=== PATIENT | female | born 1960 | race Caucasian/White ===

== ENCOUNTER → 2018-08-17 07:28 | Outpatient (CLI) | payer BC, SELFPAY ==
--- NOTE | 2018-08-17 07:35 | BI_ITS ---
MAMMOGRAPHY - BILATERAL SCREENING REASON FOR EXAM: Female, 58 years old. Routine annual screening examination. PERTINENT HISTORY: Aunt with breast cancer. Remote right stereotactic breast biopsy. TECHNIQUE: Digital bilateral breast douglas (3D mammographic acquisition) in the CC and MLO projections. 2-D mediolateral oblique (MLO) and craniocaudad (CC) views of both breasts were obtained. CAD: Full Field Digital Mammography with Computer Added Detection was performed. COMPARISON: Comparison is made with prior study to August 07, 2017 and July 31, 2016. FINDINGS: Breast Composition: The breasts are heterogeneously dense, which may obscure small masses. There are no dominant masses or suspicious calcifications. A Sterotactic tissue clip marker is seen in the deep slightly lateral Portion of the right breast. This is unchanged. No other significant abnormalities are identified. There has been no significant change since the prior study. BI/SCREENING MAMM (CAD), BILAT IMPRESSION: Stable bilateral screening mammogram. Yearly follow-up mammogram recommended. (A) ASSESSMENT CATEGORY: BIRADS Category 2: Benign. A letter regarding these results will be sent to the patient by the facility within 30 days. Approximately 10% of breast cancers are not detected by mammography. A normal mammogram should not delay biopsy of a clinically suspicious abnormality. [id number] Electronically Signed: Raz Berg MD at 9:56 EDT Tel [phone], Service support ,
== END ==
PROVIDERS: Family Provider Family Medicine; PCP Family Medicine; Visit Provider Family Medicine
DX: Z12.31 Encounter for screening mammogram for malignant neoplasm of breast (principal)
CPT/HCPCS: 77063; 77067

== ENCOUNTER → 2018-09-11 09:47 | Outpatient (CLI) | payer BC, SELFPAY ==
[2018-09-11 10:18] LABS: Absolute Lymphocyte Count 2.55 X10^3/ul (0.83-4.51); Absolute Neutrophil Count 5.8 X10^3/uL (2.0-7.7); Basophil# 0.07 X10^3/uL; Basophil% 0.7 % (0-1); Eosinophil# 0.42 X10^3/uL; Eosinophils% 4.3 % (0-5); Hematocrit 46.7 % (37-47); Hemoglobin 15.2 g/dl (12.0-15.0); Lymphocyte # 2.55 X10^3/ul (4.0); Lymphocyte % 25.9 % (19-41); Mean Corp Hgb Conc 32.5 g/gl (32-36); Mean Corpuscular Hgb 30.8 pg (27.0-32.0); Mean Corpuscular Volume 94.5 fL (81-99); Mean Platelet Vol. 11.1 fl (6.2-12.0); Monocyte# 1.01 X10^3/uL; Monocyte% 10.3 % (0-10); Neutrophil # 5.78 X10^3/uL (2.7-7.7); Neutrophil % 58.7 % (47-70); Platelet Count 239 K/mm3 (150-450); RBC Distribution Width CV 12.6 % (11.6-14.6); RBC Distribution Width SD 43.5 fl (35.1-43.9); Red Blood Count 4.94 M/mm3 (4.2-5.4); White Blood Count 9.8 K/mm3 (4.4-11.0)
[2018-09-11 10:21] LABS: POSITIVE COUNT NO; POSITIVE DIFFERENTIAL NO; POSITIVE MORPHOLOGY NO
[2018-09-11 10:38] LABS: AST(SGOT) 42 U/L (15-37); Alanine Aminotransfer ALT/SGPT 53 U/L (13-56)
== END ==
PROVIDERS: Family Provider Family Medicine; PCP Family Medicine; Referring Provider Podiatrist; Visit Provider Podiatrist
DX: B35.1 Tinea unguium (principal)
CPT/HCPCS: 36415; 84450; 84460; 85025

== ENCOUNTER → 2018-09-28 13:50 | Outpatient (CLI) | payer BC, SELFPAY ==
[2018-09-28 16:14] LABS: AST(SGOT) 43 U/L (15-37); Alanine Aminotransfer ALT/SGPT 50 U/L (13-56); Albumin, Serum 3.5 g/dL (3.2-5.0); Alkaline Phosphatase 330 U/L (45-117); Bilirubin, Direct 0.22 mg/dL (0.00-0.30); Globulin 4.6 g/dL (2.2-4.2); Protein, Total 8.1 g/dL (6.4-8.2)
== END ==
PROVIDERS: Family Provider Family Medicine; PCP Family Medicine; Referring Provider Family Medicine; Visit Provider Family Medicine
DX: R74.8 Abnormal levels of other serum enzymes (principal)
CPT/HCPCS: 36415; 80076; 84075; 84080

== ENCOUNTER → 2018-10-05 07:02 | Outpatient (CLI) | payer OTHER, SELFPAY | PROVIDERS: Family Provider Family Medicine; PCP Family Medicine; Referring Provider Family Medicine; Visit Provider Family Medicine | DX: R74.8 Abnormal levels of other serum enzymes (principal) | CPT/HCPCS: 36415 ==

== ENCOUNTER → 2018-11-03 12:21 | Outpatient (CLI) | payer OTHER, SELFPAY ==
--- NOTE | 2018-11-03 14:19 | NEURO ---
NCS and/or EMG Patient Report Ordering Doctor: Jacki Oscar DATE OF SERVICE: 11/03/18 Shay Luo is a 58 year old female who presents for electrodiagnostic testing of the left lower limb. She complains of numbness in the third through fifth toes. Electrodiagnostic findings: Left peroneal motor nerve demonstrates normal distal latency, amplitude and conduction velocity. Normal left tibial motor response. Normal sensory responses. Prolonged left-sided H reflex. Needle EMG testing shows no evidence of acute denervation. Polyphasic motor units are seen in the left gastrocnemius. Electrodiagnostic impression: This is an abnormal study in the left lower limb. 1. Electrodiagnostic findings demonstrate chronic left S1 radiculopathy. 2. No electrodiagnostic evidence for peripheral neuropathy. If there are any further questions, please do not hesitate to contact me
== END ==
PROVIDERS: Family Provider Family Medicine; PCP Family Medicine; Referring Provider Family Medicine; Visit Provider Family Medicine
DX: G57.92 Unspecified mononeuropathy of left lower limb (principal)
CPT/HCPCS: 95886; 95910

== ENCOUNTER → 2018-11-11 08:19 | Outpatient (CLI) | payer OTHER, SELFPAY ==
[2018-11-11 11:00] LABS: Alkaline Phosphatase 307 U/L (45-117)
--- OUTSIDE RECORDS SUMMARY | 2018-12-28 01:19 | XMS RPT_ITS ---
:1960 Author Organization OHIP Support Name Relationship Address Phone SETTLES, JOEL Unavailable [address] + [place] [address] UE Unavailable Unavailable Unavailable SETTLES, JOEL Unavailable [address] + [place] [address] UE Unavailable Unavailable Unavailable SETTLES, JOEL Unavailable [address] + [place] [address] UE Unavailable Unavailable Unavailable SETTLES, JOEL Unavailable [address] + [place] [address] UE Unavailable Unavailable Unavailable SETTLES, JOEL Unavailable [address] + [place] [address] UE Unavailable Unavailable Unavailable SETTLES, JOEL Unavailable [address] + [place] [address] UE Unavailable Unavailable Unavailable SETTLES, JOEL Unavailable [address] + [place] [address] UE Unavailable Unavailable Unavailable [employer] Unavailable [address] + [place] [address] SETTLES, JOEL Unavailable [address] + [place] [address] [employer] Unavailable [address] + [place] [address] SETTLES, JOEL Unavailable [address] + [place] [address] [employer] Unavailable [address] + [place] [address] SETTLES, JOEL Unavailable [address] + [place] [address] Care Team Providers Name Role Phone Jolliff, Jacki Attending Unavailable Jolliff, Jacki Referring Unavailable Jolliff, Jacki Primary Care Unavailable Jolliff, Jacki Attending Unavailable Jolliff, Jacki Referring Unavailable Jolliff, Jacki Primary Care Unavailable Jolliff, Jacki Attending Unavailable Jolliff, Jacki Primary Care Unavailable Alessio, Efren Attending Unavailable Alessio, Efren Referring Unavailable Jolliff, Jacki Primary Care Unavailable Jolliff, Jacki Attending Unavailable Jolliff, Jacki Referring Unavailable Jolliff, Jacki Primary Care Unavailable Jabour, Jesús Attending Unavailable Jabour, Vincmoe Referring Unavailable Jolliff, Jacki Primary Care Unavailable [...] TYPE CONDITION / CODE ATTENDING STATUS SOURCE 11/24/2018 Unknown G62.9 - Jolliff, Jacki Active [facility] unspecified / Hospital G62.9(ICD-10) Repository 10/11/2018 Unknown R74.8 - Abnormal Jolliff, Jacki Active [facility] levels of other Community serum enzymes / Hospital R74.8(ICD-10) Repository 09/11/2018 Unknown B35.1 - Efren Rose Active [facility] unguium / Community B35.1(ICD-10) Hospital Repository PROCEDURES PROCEDURES No Procedure Records FoundRESULTS RESULTS ABDOMEN LIMITED Observed: 12/21/2018 Status: F Source: [place] 7:55 AM [facility] REPOSITORY [facility] Imaging Services [address] [place] [address] Abdomen Limited MR#: [id number] Acct: [id number] Name: SHAY NOLASCO Mckenzie Rep #: [id number] : 1960 F 58 From: Raz Berg MD PCP: Jacki Oscar MD Status: REG CLI Study: Abdomen Limited Date of Exam: 12/21/18 Exam# [id number] Ordering Dr: Jesús Chandler MD STUDY: ABDOMINAL ULTRASOUND - RIGHT UPPER QUADRANT REASON FOR VISIT: Female, 58 years old. Elevated liver enzymes. Hepatic cholestasis. TECHNIQUE: Ultrasound evaluation of the right upper quadrant was performed with real-time and static carrillo-scale imaging. TECHNICAL QUALITY: Adequate. COMPARISON: None. FINDINGS: Liver: The liver measures 16.0 cm. There is normal echogenicity of the liver. The bile ducts are within normal limits. There is hepatic color flow. The direction of portal flow is hepatopetal. There is no demonstrated mass lesion. Gallbladder: Normal distended gallbladder. The gallbladder wall measures 2.6 mm. There is a negative sonographic Wallace's sign. There is no pericholecystic fluid. There are no gallstones. Common Bile Duct (C.B.D.): The common bile duct measures 4.3 mm. Pancreas: Normal size of the head, body and tail of the pancreas. There is normal echogenicity of the pancreas. There is no demonstrated pancreatic mass or cyst. Right Kidney: Normal size of the right kidney. The right kidney measures 11.6 cm x 5 cm x 6.1 cm. Normal renal cortex. The right cortex measures 1.4 cm. There is no demonstrated renal mass or cyst. There is no right hydronephrosis. US/Abdomen Limited IMPRESSION: Normal right upper quadrant ultrasound examination. Electronically Signed: Raz Berg MD at 10:18 EST Tel [phone], Service support , CC: Jacki Oscar MD; Jesús Chandler Manager Of Construction: Signed LIVER PROFILE Collected: 12/14/2018 Status: F Source: [place] 2:31 PM [facility] REPOSITORY TYPE CODE TESTS RESULT OUT OF RANGE REFERENCE UNITS LAB L501.1500 6.4-8.2 g/dL High T PROT 8.3 LAB L501.1800 3.2-5.0 g/dL Normal ALB 3.6 LAB L501.1950 2.2-4.2 g/dL High GLOB 4.7 LAB L501.4100 15-37 U/L Normal AST 28 LAB L501.4305 45-117 U/L High ALK P 316 LAB L501.4405 13-56 U/L Normal ALT 40 LAB L501.4600 0.20-1.00 mg/dL Normal T BILI 0.50 LAB L501.4700 0.00-0.30 mg/dL Normal D BILI 0.21 Performed By: #### L500.3400, L501.5100 #### [facility] [address] [place], [address] GGTP Collected: 12/14/2018 Status: F Source: [place] 2:31 PM [facility] REPOSITORY TYPE CODE TESTS RESULT OUT OF RANGE REFERENCE UNITS LAB L501.5100 5-55 U/L High GGTP 441 Performed By: #### L500.3400, L501.5100 #### [facility] [address] [place], [address] ERYTHROCYTE SED RATE Collected: 12/14/2018 Status: F Source: [place] 2:31 PM [facility] REPOSITORY TYPE CODE TESTS RESULT OUT OF RANGE REFERENCE UNITS LAB L102.0000 0-30 mm/hr Normal SED RATE 14 Performed By: #### L101.9900 #### [facility] [address] [place], [address] ANTI-MITOCHONDRIAL AB Collected: Status: F Source: [place] 12/14/2018 2:31 PM [facility] REPOSITORY TYPE CODE TESTS RESULT OUT OF REFERENCE UNITS RANGE LAB L800.1280 0.0-20.0 Units High MITOCHN AB 98.8 Result Comment: Negative 0.0 - 20.0 Equivocal 20.1 - 24.9 Positive >24.9 Mitochondrial (M2) Antibodies are found in 90-96% of patients with primary biliary cirrhosis. Performed By: #### L800.1280, L3100.5475 #### [facility] (refer to report for specific site) refer to report for address and phone number ANTINUCLEAR ANTIBODIES Collected: 12/14/2018 Status: F Source: [place] DIRECT 2:31 PM [facility] REPOSITORY TYPE CODE TESTS RESULT OUT OF REFERENCE UNITS RANGE LAB L3100.5475 Negative High Positive CHRISTINE-DIRECT Result Comment: Performed at: [facility] [address] [id number] Supervisor Park Workers: Jesús Chu PhD, Phone: [phone] Performed By: #### L800.1280, L3100.5475 #### [facility] (refer to report for specific site) refer to report for address and phone number ANTI-SMOOTH MUSCLE ABS Collected: 12/14/2018 Status: F Source: [place] 2:31 PM [facility] REPOSITORY TYPE CODE TESTS RESULT OUT OF RANGE REFERENCE UNITS LAB L803.2200 0-19 Units Normal ANTISMOOTH 6643 14 Result Comment: Negative 0 - 19 Weak positive 20 - 30 Moderate to strong positive >30 Actin Antibodies are found in 52-85% of patients with autoimmune hepatitis or chronic active hepatitis and in 22% of patients with primary biliary cirrhosis. Performed By: #### L803.2200, L3100.0390, L3100.0625, L3400.0700 #### [facility] (refer to report for specific site) refer to report for address and phone number HEPATITIS B SURFACE Collected: 12/14/2018 Status: F Source: [place] AG 2:31 PM [facility] REPOSITORY TYPE CODE TESTS RESULT OUT OF RANGE REFERENCE UNITS LAB L3100.0400 Negative Normal HB Negative SURF AG Result Comment: Performed at: [facility] [address] [id number] Supervisor Park Workers: Jesús Chu PhD, Phone: [phone] Performed By: #### L803.2200, L3100.0390, L3100.0625, L3400.0700 #### [facility] (refer to report for specific site) refer to report for address and phone number HEPATITIS C ANTIBODIES Collected: 12/14/2018 Status: F Source: [place] 2:31 PM [facility] REPOSITORY TYPE CODE TESTS RESULT OUT OF RANGE REFERENCE UNITS LAB L3100.0650 0.0-0.9 s/co ratio Normal HEP C AB 0.1 Result Comment: Negative: < 0.8 Indeterminate: 0.8 - 0.9 Positive: > 0.9 The CDC recommends that a positive HCV antibody result be followed up with a HCV Nucleic Acid Amplification test (552466). Performed By: #### L803.2200, L3100.0390, L3100.0625, L3400.0700 #### [facility] (refer to report for specific site) refer to report for address and phone number CERULOPLASMIN Collected: 12/14/2018 Status: F Source: [place] 2:31 PM [facility] REPOSITORY TYPE CODE TESTS RESULT OUT OF RANGE REFERENCE UNITS LAB L3400.0700 19.0-39.0 mg/dL Normal CERULOPLAS 1560 31.7 Performed By: #### L803.2200, L3100.0390, L3100.0625, L3400.0700 #### [facility] (refer to report for specific site) refer to report for address and phone number SPINE LUMBAR Observed: 11/22/2018 Status: F Source: [place] (ROUTINE) 3:29 PM [facility] REPOSITORY [facility] Imaging Services [address] [place] [address] Spine Lumbar (Routine) MR#: [id number] Acct: [id number] Name: SHAY NOLASCO Rep #: [id number] : 1960 F 58 From: Sherrill Valdes MD PCP: Jacki Oscar MD Status: REG CLI Study: Spine Lumbar (Routine) Date of Exam: 11/22/18 Exam# [id number] Ordering Dr: Jacki Oscar MD STUDY: MRI LUMBAR SPINE WITHOUT CONTRAST REASON FOR EXAM: Female, 58 years old. Nerve impingement. Low back and left foot leg pain. TECHNIQUE: Standardized fat and water weighted pulse sequences were obtained in the sagittal and axial planes. COMPARISON: None FINDINGS: T12-L1: Normal endplates. Normal disc height, hydration and morphology. Normal bilateral facet joints. Normal central canal and bilateral lateral recesses. Normal bilateral intervertebral neural foramina. There is straightening of the normal lumbar lordosis. There is no substantial scoliosis. Normal conus medullaris that terminates at the L1 level. L1-2: Normal endplates. Normal disc height, hydration and morphology. Normal bilateral facet joints. Normal central canal and bilateral lateral recesses. Normal bilateral intervertebral neural foramina. L2-3: Schmorl's nodes. Endplates are otherwise unremarkable.. Normal disc height, hydration and morphology. Normal bilateral facet joints. Normal central canal and bilateral lateral recesses. Normal bilateral intervertebral neural foramina. L3-4: Schmorl's nodes. Disc dehydration and mild disc space narrowing. Normal bilateral facet joints. Normal central canal and bilateral lateral recesses. Normal bilateral intervertebral neural foramina. L4-5: Normal endplates. Disc dehydration and moderate disc space narrowing. There is mild facet hypertrophy. There is a mild, noncompressive spondylotic bar. Normal central canal and bilateral lateral recesses. There is mild inferior foraminal encroachment. No evidence of neural compromise. L5-S1: Edematous endplate changes. There is marked disc space narrowing. There is a mild, noncompressive spondylotic bar. Mild facet hypertrophy. There is mild foraminal encroachment due to spurring and facet hypertrophy. Normal central canal and bilateral lateral recesses. Normal visualized sacral ala. Normal visualized paraspinous soft tissue structures. MRI/Spine Lumbar (Routine) IMPRESSION: 1. Mild foraminal encroachment at L4-5 and L5-S1. 2. Degenerative changes as noted above. Electronically Signed: Sherrill Valdes MD at 17:56 EST Tel , Service support , CC: Jacki Oscar MD Manager Of Construction: Signed PT D/C SUMMARY (1) Observed: 11/17/2018 Status: F Source: [place] 7:00 AM [facility] REPOSITORY [facility] [address] [place] [address]. [address] [place], [place] [address] Fax REHABILITATION SERVICES DISCHARGE SUMMARY MR#: [id number] Acct: [id number] Name: SHAY NOLASCO Rep #: [id number] : 1960 58 From: Elvis MCGEET, OCS, CSCS Referring Dr.: Jacki Oscar MD Status: REG RCR Insurance: UMR CADE [id number] SELF PAY INSURANCE HP - PT D/C Summary It has been my pleasure to treat SAHY NOLASCO under orders from Jacki Oscar MD, for the diagnosis of Neuroapthy left leg for a total of 6 visit(s). Discharge Date: 11/16/18 Please see the following information for a summary of their discharge status. - Subjective Subjective: Nerve test showed L1 bad and will hav e MRI next week. Numbness persists, some days none and other days really bad. Fairly good today. Exercises helped especially PPU. No real pain. Treatments don t change presentation immediately. Sleep is good. Not working outside of home. Good with ADLs. Will continue ex. Wants to be done with PT until after MRI and doctor f/u, knows she needs to continue with exs at home. Doing PPU and strengthening daily in morning. 70% better. - Pain L toes Pain Intensity (Out of 10): 0 neck pain Pain Intensity (Out of 10): 1 - Overall Improvement % Improvement: 75 - Objective Objective/Function: L/S AROM is full except min limited in extension adn creates tension over spine. No other major changes to reflexes or numbeness hcih is more intermittent but still up and down without apparent pattern. - Goals Goal 1:: Abolish L leg numbness and pain Goal Progress: Progressing Goal 2:: Full L/s AROM without pain. Goal Progress: Progressing Goal 3:: I approp HEp to minimize future problems. Goal Progress: Goal Met - Plan Plan: D/C, pt to have MRI and f/u with doctor. - D/C Information Discharge Comments: Pt wishes to have MRI and f/u with doctor. If there are questions or concerns regarding this patient's physical therapy, please feel free to call me at [phone]. Thank you for the referral of this patient. Sincerely, Elvis West, ARELYT, OCS, CSCS <Electronically signed by Elvis West DPT, OCS, CSCS> 11/17/18 0700 CC: Jacki Oscar MD EBG Signed ALKALINE PHOSPHATASE Collected: 11/11/2018 Status: F Source: [place] 8:24 AM [facility] REPOSITORY TYPE CODE TESTS RESULT OUT OF RANGE REFERENCE UNITS LAB L501.4305 45-117 U/L High ALK P 307 Performed By: #### L501.4305 #### [facility] [address] [place], [address] NCS AND/OR EMG Observed: 11/03/2018 Status: F Source: [place] PATIENT 3:18 PM [facility] REPOSITORY [facility] Pulmonary Services/Neurology [address] [place] [place] [address] MR#: [id number] Acct: [id number] Name: SHAY NOLASCO Rep #: [id number] : 1960 58 From: Shanae Rdoríguez MD Referring Dr: Jacki Oscar MD Status: REG CLI Ordering Dr: Date: Location: [facility] Sex: F C NCS and/or EMG Patient Report Ordering Doctor: Jacki Oscar DATE OF SERVICE: 11/03/18 Shay Nolasco is a 58 year old female who [...] do not hesitate to contact me 11/03/18 0910 <Electronically signed by Shanae Rodríguez MD> Date Shanae Rodríguez MD CC: Jacki Oscar MD; Shanae Rodríguez Date Dictated: 11/03/181418 Date Transcribed: 11/03/181418 Manager Of Construction: PREET Signed INITAL EVALUATION (1) Observed: 10/28/2018 Status: F Source: [place] - PT 9:22 AM [facility] REPOSITORY [facility] [address] [place] [address] Fax REHABILITATION SERVICES INITIAL EVALUATION MR#: [id number] Acct: [id number] Name: SHAY NOLASCO Rep #: [id number] : 1960 58 From: Elvis West DPT, OCS, CSCS Referring Dr.: Jacki Oscar MD Status: REG RCR Insurance: R CADE [id number] SELF PAY INSURANCE Patient's Visit Information SHAY NOLASCO is a 58 year old F referred [...] to be FAXED BACK to us at [phone] for Medicare purposes. For Medicare only, by [...] REPOSITORY Order Comment: Comments: ALK PHOS ISO [id number] TIGER/REF Test(s) Ordered: ALK PHOS ISO [id number] TIGER/REF TYPE CODE TESTS RESULT OUT OF RANGE REFERENCE UNITS LAB L801.1541 Normal MIS LAB TEST Result Comment: TEST RESULT FLAGS UNITS REF INTERVAL Alk Phos Isoenzyme Alkaline Phosphatase 319 High IU/L 39 - 117 Liver Fraction: 66 % 18 - 85 Bone Fraction: 34 % 14 - 68 Intestinal Frac.: 0 % 0 - 18 TESTING PERFORMED AT [facility]. ORIGINAL REPORT ON FILE IN LAB CONTAINS ADDITIONAL TEST SITE INFORMATION. Performed By: #### L801.1541 #### [facility] [place], [address] LIVER PROFILE Collected: 09/28/2018 Status: F Source: [...] BILI 0.22 Performed By: #### L500.3400 #### [facility] [place], [address] CBC W/DIFF, AUTOMATED Collected: 09/11/2018 Status: F [...] Lymph 2.55 Performed By: #### L100.0100 #### [facility] [address] [place], [address] AST(SGOT) Collected: 09/11/2018 Status: F Source: [place] 9:59 AM [facility] REPOSITORY TYPE CODE TESTS RESULT OUT OF RANGE REFERENCE UNITS LAB L501.4100 15-37 U/L High AST 42 Performed By: #### L501.4100, L501.4405 #### [facility] [address] [place], [address] ALANINE AMINOTRANSFERAS Collected: 09/11/2018 Status: F Source: [place] (SGPT) 9:59 AM [facility] REPOSITORY TYPE CODE TESTS RESULT OUT OF RANGE REFERENCE UNITS LAB L501.4405 13-56 U/L Normal ALT 53 Performed By: #### L501.4100, L501.4405 #### [facility] [address] [place] [place], [address] SCREENING MAMM (CAD), Observed: 08/17/2018 Status: F Source: [place] BIL[place] 7:35 AM [facility] REPOSITORY [facility] Imaging Services [address] [place] [address] SCREENING MAMM (CAD), BILAT MR#: [id number] Acct: [id number] Name: SHAY NOLASCO Rep #: [id number] : 1960 F 58 From: Raz Berg MD PCP: Jacki Oscar MD Status: [facility] Study: SCREENING MAMM (CAD), BILAT Date of Exam: 08/17/18 Exam# [id number] Ordering Dr: Jacki Oscar MD MAMMOGRAPHY - [...] delay biopsy of a clinically suspicious abnormality. [id number] Electronically Signed: Raz Berg MD at 9:56 EDT Tel [phone], Service support , CC: Jacki Oscar MD Manager Of Construction: Signed ALLERGIES ALLERGIES No Allergies Records FoundENCOUNTERS ENCOUNTERS ADMIT/DISCHARGE ACCOUNT ADMITTING ENCOUNTER LOCATION SOURCE NUMBER CLASS 12/21/2018 [id number] Ambulatory [place] 5 [facility] ing:US Repository 12/14/2018 [id number] [place] 2 [facility] ing:MTLAB Repository 11/22/2018 [id number] [place] 0 [facility] ing:MRI Repository 11/16/2018/ [id number] Ambulatory [place] 8 0 [facility] ing:PT Repository 11/11/2018 [id number] Amb[place] 3 [facility] ing:MTLAB Repository 11/03/2018 [id number] Ambulatory [place] 9 [facility] ing:PSN Repository 10/05/2018 [id number] Ambulatory [place] 5 [facility] ing:LAB.FUTUR Repository E 09/28/2018 [id number] Ambulatory [place] 7 [facility] ing:MTLAB Repository 09/11/2018 [id number] Amb[place] 8 [facility] ing:LAB Repository 08/17/2018 [id number] Ambulatory [place] 9 [facility] ing:OPBI Repository PAYERS PAYERS ENCOUNTER GUARANTOR PAYER SUBSCRIBER SOURCE 12/21/2018 SHAY Rincon Primary Insurance:UMR JOEL L [place] [id number] CADE [id number] SETTLESDOB: [facility] Number: [id number] [place], [place] [id number] Repository [address]Rny: 330) Date:1440-41-85US [phone] () [address] [place] [phone]: 12/21/2018 Secondary NOT GIVENUNK [place] Insurance:SELF PAY [facility] Number: Effective Repository Date:2018-12-14 12/14/2018 SHAY Rincon Primary Insurance:UMR JOEL L [place] [id number] CADE [id number] SETTLESDOB: [facility] [place] Number: [id number] Juan, [place] [id number] Repository [address]Nra: 330) Date:0428-24-21WZ [phone] () [address] [place] [phone]: 12/14/2018 Secondary NOT GIVENUNK [place] Insurance:SELF PAY [facility] Number: Effective Repository Date:2018-12-14 11/22/2018 SHAY Rincon Primary Insurance:UMR JOEL L [place] [id number] CADE [id number] SETTLESDOB: Community [place] Number: [id number] [place], [place] [id number] Repository [address]Jut: (330) Date:5148-30-05KJ [phone] () [address] [place] [phone]: 11/22/2018 Secondary NOT GIVENUNK [place] Insurance:SELF PAY [facility] Effective Repository Date:2018-11-15 11/16/2018 SHAY R Primary Insurance:UMR JOEL L [place] [id number] CADE [id number] SETTLESDOB: [facility] [place] Number: [id number] Juan, [place] [id number] Repository [address]Ymi: (330) Date:6082-64-17VV [phone] () [address] [place] [phone]: 11/16/2018 Secondary NOT GIVENUNK [place] Insurance:SELF PAY [facility] Number: Effective Repository Date:2018-10-26 11/11/2018 SHAY R Primary Insurance:UMR JOEL L [place] [id number] CADE [id number] SETTLESDOB: Community [place] Number: [id number] Juan, [place] [id number] Repository [address]Cml: (330) Date:1036-16-73VC [phone] () [address] [place] [phone]: 11/11/2018 Secondary NOT GIVENUNK [place] Insurance:SELF PAY [facility] Number: Effective Repository Date:2018-11-11 11/03/2018 SHAY R Primary Insurance:UMR JOEL L [place] [id number] CADE [id number] SETTLESDOB: Community [place] Number: [id number] [place], [place] [id number] Repository [address]Mai: (330) Date:4286-12-98NP [phone] () [address] [place] [phone]: 11/03/2018 Secondary NOT GIVENUNK [place] Insurance:SELF PAY [facility] Effective Repository Date:2018-11-02 10/05/2018 SHAY Rincon Primary Insurance:UMR JOEL L [place] [id number] CADE [id number] SETTLESDOB: [facility] [place] Number: [id number] Juan, [place] [id number] Repository [address]Wyo: 330) Date:9546-36-01BY [phone] () [place], [place] [address]QE: 10/05/2018 Secondary NOT GIVENUNK [place] Insurance:SELF PAY [facility] Number: Effective Repository Date:2018-10-04 09/28/2018 SHAY R Primary SHAY R [place] [id number] Insurance:ANTHEMPolic OLIVERDOB: [facility] BATDO y Number: [id number] [place], [place] [id number] Repository [address]Cgv: 330) Date:0510-21-65PE [phone] () [place]JQK[place], [place] [address]TS: 09/28/2018 Secondary NOT GIVENUNK [place] Insurance:SELF PAY [facility] Number: Effective Repository Date:2018-09-28 09/11/2018 SHAY R Primary SHAY R [place] [id number] Insurance:ANTHEMPolic OLIVERDOB: [facility] [place] y Number: [id number] [place], [place] [id number] Repository [address]Mlo: (330) Date:8442-36-59KQ [phone] () 196225ZAVYYZZ, [place] [address]OU: 09/11/2018 Secondary NOT GIVENUNK [place] Insurance:SELF PAY [facility] Number: Effective Repository Date:2018-09-11 08/17/2018 Shay R Primary Shay R [place] [id number] Insurance:ANTHEMPolic OliverDOB: Community [place] y Number: [id number] [id number] Repository [address]Ane: (330) Date:2744-64-46BG [phone] () [address]BW[place], [place] [address]ZK: 08/17/2018 Secondary NOT GIVENUNK [place] Insurance:SELF PAY [facility] Number: Effective Repository Date:2018-07-26
== END ==
PROVIDERS: Family Provider Family Medicine; PCP Family Medicine; Referring Provider Family Medicine; Visit Provider Family Medicine
DX: R74.8 Abnormal levels of other serum enzymes (principal)
CPT/HCPCS: 36415; 84075

== ENCOUNTER 2018-11-16 10:30 | Outpatient (RCR) | payer OTHER, SELFPAY ==
--- NOTE | 2018-10-27 16:28 | HP.PTEVAL_ITS ---
Patient's Visit Information JAKE NOLASCO is a 58 year old F referred to Physical Therapy by Jacki Oscar MD with a diagnosis of Neuroapthy left leg. Date of Evaluation: 10/27/18 Physical Therapist: Elvis West DPT, [place] - Visit Plan Frequency: 2x /Week Duration: 4-6 Weeks Plan: 2x/week for 2-6 weeks ... 1. Ethan LB ext ex and rogression of forces, ext mobs. L adherent nerve root stretch(HS stretch aggressively). Spoinal postural correction. Monitor L leg numbness, LB ext and symptoms with L slump test. EG to recheck in two weeks. - Subjective Findings: Numbness real bad in outside 3 toes of L foot. No real pain now but in the am she hurts in same 3 toes. That has been happening for 3 months insidiously. Symptoms are intermittent. and 0 to severe. No pattern. No LBP but has hip and knee pain B off and on. Has h/o neck pain. Sitting at computer makes that pain worse. Dr. Strickland ordered nerve conduction test. 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 Sleep is fairly good. Worse symptoms in am. Not employed. Lost job a month ago but has been sitting at desk for twentyeight years. Basic aDls are OK. Hobbies include gardening, Likes quilting and scrapbooking. Can do them all pretty well. Generally neck is worse sitting , needs support. - Pain L toes Pain Intensity (Out of 10): 1 Pain Intensity Range: 0, 8 Comment: numby neck pain Pain Intensity (Out of 10): 2 Pain Intensity Range: 0, 8 - Objective Walks and transfers I without increased symptoms. LB ext ROM very limited, flexion is full and SB are full and painfree. R rib hump with flexion slightly, possible scoliotic T/S. Posture is forward head and forward flexed lower c/s. No tenderness to the palpation in LB. repeated ext in lying increases ext quickly, has pain at end range but transient. reflexes 0/3 patella and achilles. Sensation diminished to gross light touch L lateral calf and into foot and last three toes. Strength in LE is symmetrical in ankles and knees adn big toe ext. Weaknes sin PF on L vs R slightly. Pain posterior leg with L ANRS that is not present on R - Goals Goal 1:: Abolish L leg numbness and pain Goal Time Frame: 2-4 Weeks Goal 2:: Full L/s AROM without pain. Goal Time Frame: 4-6 Weeks Goal 3:: I approp HEp to minimize future problems. 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 For Medicare and Medicare HMO plans, please review the plan of care and approve it. It will need to be FAXED BACK to us at [phone] for Medicare purposes. For Medicare only, by signing this I certify the plan of care. Please let me know if there are questions or concerns regarding this plan of care. Physician Signature: Date:
--- NOTE | 2018-11-16 10:51 | HP.PTDCSUM ---
HP - PT D/C Summary It has been my pleasure to treat JAKE NOLASCO under orders from Jacki Oscar MD, for the diagnosis of Neuroapthy left leg for a total of 6 visit(s). Discharge Date: 11/16/18 Please see the following information for a summary of their discharge status. - Subjective Subjective: Nerve test showed L1 bad and will hav e MRI next week. Numbness persists, some days none and other days really bad. Fairly good today. Exercises helped especially PPU. No real pain. Treatments don?t change presentation immediately. Sleep is good. Not working outside of home. Good with ADLs. Will continue ex. Wants to be done with PT until after MRI and doctor f/u, knows she needs to continue with exs at home. Doing PPU and strengthening daily in morning. 70% better. - Pain L toes Pain Intensity (Out of 10): 0 neck pain Pain Intensity (Out of 10): 1 - Overall Improvement % Improvement: 75 - Objective Objective/Function: L/S AROM is full except min limited in extension adn creates tension over spine. No other major changes to reflexes or numbeness hcih is more intermittent but still up and down without apparent pattern. - Goals Goal 1:: Abolish L leg numbness and pain Goal Progress: Progressing Goal 2:: Full L/s AROM without pain. Goal Progress: Progressing Goal 3:: I approp HEp to minimize future problems. Goal Progress: Goal Met - Plan Plan: D/C, pt to have MRI and f/u with doctor. - D/C Information Discharge Comments: Pt wishes to have MRI and f/u with doctor. If there are questions or concerns regarding this patient's physical therapy, please feel free to call me at [phone]. Thank you for the referral of this patient. Sincerely, Elvis West, DPT, OCS, CSCS
--- OUTSIDE RECORDS SUMMARY | 2018-12-23 01:45 | XMS RPT_ITS ---
:1960 Author Organization OH[facility] Care Team Providers Name Role Phone Jacki Oscar Attending Unavailable Jacki Oscar Referring Unavailable Dayne, Jacki Primary Care Unavailable Dayne Jacki Attending Unavailable Dayne, Jacki Primary Care Unavailable Efren Mccallum Attending Unavailable Efren Mccallum Referring Unavailable Dayne, Jacki Primary Care Unavailable Dayne Jacki Attending Unavailable Dayne, Jacki Referring Unavailable Jocandy, Jacki Primary Care Unavailable Jolliff, Jacki Attending Unavailable Jolliff, Jacki Referring Unavailable Jolliff, Jacki Primary Care Unavailable Jolliff, Jacki Attending Unavailable Jolliff, Jacki Referring Unavailable Jolliff, Jacki Primary Care Unavailable Jolliff, Jacki Attending Unavailable Jolliff, Jacki Referring Unavailable Jolliff, Jacki Primary Care Unavailable PROBLEMS PROBLEMS DATE TYPE CONDITION / CODE ATTENDING STATUS SOURCE 10/11/2018 Unknown R74.8 - Abnormal JollJacki soriano Active [place] levels of other Community serum enzymes / Hospital R74.8(ICD-10) Repository 09/11/2018 Unknown B35.1 - Efren Rose Active [place] unguium / Community B35.1(ICD-10) Hospital Repository PROCEDURES PROCEDURES No Procedure Records FoundRESULTS RESULTS ALKALINE PHOSPHATASE Collected: 11/11/2018 Status: F Source: [place] 8:24 AM [facility] REPOSITORY TYPE CODE TESTS RESULT OUT OF RANGE REFERENCE UNITS LAB L501.4305 45-117 U/L High ALK P 307 Performed By: #### L501.4305 #### [facility] Laboratory [address] [place] [place], [address] NCS AND/OR EMG Observed: 11/03/2018 Status: F Source: [place] PATIENT 3:18 PM [facility] REPOSITORY [facility] Pulmonary Services/Neurology [address] [place] [address] MR#: [id number] Acct: [id number] Name: JAKE LUO Rep #: [id number] : 1960 58 From: Shanae Rodríguez MD Referring Dr: Jacki Oscar MD Status: REG CLI Ordering Dr: Date: Location: [facility] Sex: F C NCS and/or EMG Patient Report Ordering Doctor: Jacki Oscar DATE OF SERVICE: 11/03/18 Jake Luo is a 58 year old female who presents for electrodiagnostic testing of the left lower limb. She complains of numbness in the third through fifth toes. Electrodiagnostic findings: Left peroneal motor nerve demonstrates normal distal latency, amplitude and conduction velocity. Normal left tibial motor response. Normal sensory responses. Prolonged left-sided H reflex. Needle EMG testing shows no evidence of acute denervation. Polyphasic motor units are seen in the left gastrocnemius. Electrodiagnostic impression: This is an abnormal study in the left lower limb. 1. Electrodiagnostic findings demonstrate chronic left S1 radiculopathy. 2. No electrodiagnostic evidence for peripheral neuropathy. If there are any further questions, please do not hesitate to contact me 11/03/18 [id number] <Electronically signed by Shanae Rodríguez MD> Date Shanae Rodríguez MD CC: Jacki Oscar MD; Shanae Rodríguez Date Dictated: 11/03/18 141 Date Transcribed: 11/03/181418 Food Science Professor: PREET Signed INITAL EVALUATION (1) Observed: 10/28/2018 Status: F Source: [place] - 9:22 AM [facility] REPOSITORY [facility] Physical Therapy [facility] [address] [place] [address]. [address] [place] [address] Fax REHABILITATION SERVICES INITIAL EVALUATION MR#: [id number] Acct: [id number] Name: JAKE LUO Rep #: [id number] : 1960 58 From: Elvis West DPT, OCS, CSCS Referring Dr.: Jacki Oscar MD Status: REG RCR Insurance: [facility] CADE [id number] SELF PAY INSURANCE Patient's Visit Information JAKE LUO is a 58 year old F referred to Physical Therapy by Jacki Oscar MD with a diagnosis of Neuroapthy left leg. Date of Evaluation: 10/27/18 Physical Therapist: Elvis West DPT, OC - Visit Plan Frequency: 2x /Week Duration: 4-6 Weeks Plan: 2x/week for 2-6 weeks ... 1. Ethan LB ext ex and rogression of forces, ext mobs. L adherent nerve root stretch(HS stretch aggressively). Spoinal postural correction. Monitor L leg numbness, LB ext and symptoms with L slump test. EG to recheck in two weeks. - Subjective Findings: Numbness real bad in outside 3 toes of L foot. No real pain now but in the am she hurts in same 3 toes. That has been happening for 3 months insidiously. Symptoms are intermittent. and 0 to severe. No pattern. No LBP but has hip and knee pain B off and on. Has h/o neck pain. Sitting at computer makes that pain worse. Dr. Strickland ordered nerve conduction test. 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 Sleep is fairly good. Worse symptoms in am. Not employed. Lost job a month ago but has been sitting at desk for twentyeight years. Basic aDls are OK. Hobbies include gardening, Likes quilting and scrapbooking. Can do them all pretty well. Generally neck is worse sitting , needs support. - Pain L toes Pain Intensity (Out of 10): 1 Pain Intensity Range: 0, 8 Comment: numby neck pain Pain Intensity (Out of 10): 2 Pain Intensity Range: 0, 8 - Objective Walks and transfers I without increased symptoms. LB ext ROM very limited, flexion is full and SB are full and painfree. R rib hump with flexion slightly, possible scoliotic T/S. Posture is forward head and forward flexed lower c/s. No tenderness to the palpation in LB. repeated ext in lying increases ext quickly, has pain at end range but transient. reflexes 0/3 patella and achilles. Sensation diminished to gross light touch L lateral calf and into foot and last three toes. Strength in LE is symmetrical in ankles and knees adn big toe ext. Weaknes sin PF on L vs R slightly. Pain posterior leg with L ANRS that is not present on R - Goals Goal 1:: Abolish L leg numbness and pain Goal Time Frame: 2-4 Weeks Goal 2:: Full L/s AROM without pain. Goal Time Frame: 4-6 Weeks Goal 3:: I approp HEp to minimize future problems. 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 For Medicare and Medicare HMO plans, please review the plan of care and approve it. It will need to be FAXED BACK to us at [phone] for Medicare purposes. For Medicare only, by signing this I certify the plan of care. Please let me know if there are questions or concerns regarding this plan of care. Physician Signature: Date: <Electronically signed by Elvis West DPT, OCS, CSCS> 10/28/18 0922 CC: Jacki Oscar MD EBG Signed MISCELLANEOUS LAB Collected: 10/05/2018 Status: F Source: [place] PROCEDURE 7:04 AM [facility] REPOSITORY Order Comment: Comments: ALK PHOS ISO [id number] TIGER/REF Test(s) Ordered: ALK PHOS ISO [id number] TIGER/REF TYPE CODE TESTS RESULT OUT OF RANGE REFERENCE UNITS LAB L801.1541 Normal [facility] LAB TEST Result Comment: TEST RESULT FLAGS UNITS REF INTERVAL Alk Phos Isoenzyme Alkaline Phosphatase 319 High IU/L 39 - 117 Liver Fraction: 66 % 18 - 85 Bone Fraction: 34 % 14 - 68 Intestinal Frac.: 0 % 0 - 18 TESTING PERFORMED AT [facility]. ORIGINAL REPORT ON FILE IN LAB CONTAINS ADDITIONAL TEST SITE INFORMATION. Performed By: #### L801.1541 #### [facility] [address] [facility]. [place], [place], [address] LIVER PROFILE Collected: 09/28/2018 Status: F Source: [place] 1:52 PM [facility] REPOSITORY TYPE CODE TESTS RESULT OUT OF RANGE REFERENCE UNITS LAB L501.1500 6.4-8.2 g/dL Normal T PROT 8.1 LAB L501.1800 3.2-5.0 g/dL Normal ALB 3.5 LAB L501.1950 2.2-4.2 g/dL High GLOB 4.6 LAB L501.4100 15-37 U/L High AST 43 LAB L501.4305 45-117 U/L High ALK P 330 LAB L501.4405 13-56 U/L Normal ALT 50 LAB L501.4600 0.20-1.00 mg/dL Normal T BILI 0.60 LAB L501.4700 0.00-0.30 mg/dL Normal D BILI 0.22 Performed By: #### L500.3400 #### [facility] [address] [place], [address] CBC W/DIFF, AUTOMATED Collected: 09/11/2018 Status: F Source: [place] 9:59 AM [facility] REPOSITORY TYPE CODE TESTS RESULT OUT OF RANGE REFERENCE UNITS LAB L100.1000 4.4-11.0 K/mm3 Normal WBC 9.8 LAB L100.1200 4.2-5.4 M/mm3 Normal RBC 4.94 LAB L100.1300 12.0-15.0 g/dl High HGB 15.2 LAB L100.1400 37-47 % Normal HCT 46.7 LAB L100.1500 81-99 fL Normal MCV 94.5 LAB L100.1600 27.0-32.0 pg Normal MCH 30.8 LAB L100.1700 32-36 g/gl Normal MCHC 32.5 LAB L100.1810 11.6-14.6 % Normal RDW CV 12.6 LAB L100.1820 35.1-43.9 fl Normal RDW SD 43.5 LAB L100.1900 150-450 K/mm3 Normal PLT 239 LAB L100.2000 6.2-12.0 fl Normal MPV 11.1 LAB L100.2100 47-70 % Normal NEUT% 58.7 LAB L100.2200 19-41 % Normal LY% 25.9 LAB L100.2300 0-10 % High MONO% 10.3 LAB L100.2400 0-5 % Normal EO% 4.3 LAB L100.2500 0-1 % Normal BASO% 0.7 LAB L100.2550 0.0-0.9 % Normal IM GRAN % 0.100 Result Comment: IG% - Immature Granulocytes (promyelocytes, myelocytes and metamyelocytes) > 1% indicates that a LEFT SHIFT is Present. LAB L100.2620 2.0-7.7 X10 3/uL Normal Absolute Neut 5.8 LAB L100.2720 0.83-4.51 X10 3/ul Normal Absolute Lymph 2.55 Performed By: #### L100.0100 #### [facility] [address] [place], [address] AST(SGOT) Collected: 09/11/2018 Status: F Source: [place] 9:59 AM [facility] REPOSITORY TYPE CODE TESTS RESULT OUT OF RANGE REFERENCE UNITS LAB L501.4100 15-37 U/L High AST 42 Performed By: #### L501.4100, L501.4405 #### [facility] [address] [place], [address] ALANINE AMINOTRANSFERAS Collected: 09/11/2018 Status: F Source: [place] (SGPT) 9:59 AM [facility] REPOSITORY TYPE CODE TESTS RESULT OUT OF RANGE REFERENCE UNITS LAB L501.4405 13-56 U/L Normal ALT 53 Performed By: #### L501.4100, L501.4405 #### [facility] [address] [place] [place], [address] SCREENING MAMM (CAD), Observed: 08/17/2018 Status: F Source: [place] 7:35 AM [facility] REPOSITORY [facility] Imaging Services [address] [place] [address] SCREENING MAMM (CAD), BILAT MR#: [id number] Acct: [id number] Name: JAKE LUO Rep #: [id number] : 1960 F 58 From: Raz Berg MD PCP: Jacki Oscar MD Status: REG CLI Study: SCREENING MAMM (CAD), BILAT Date of Exam: 08/17/18 Exam# [id number] Ordering Dr: Jacki Oscar MD MAMMOGRAPHY - BILATERAL SCREENING REASON FOR EXAM: Female, 58 years old. Routine annual screening examination. PERTINENT HISTORY: Aunt with breast cancer. Remote right stereotactic breast biopsy. TECHNIQUE: Digital bilateral breast douglas (3D mammographic acquisition) in the CC and MLO projections. 2-D mediolateral oblique (MLO) and craniocaudad (CC) views of both breasts were obtained. CAD: Full Field Digital Mammography with Computer Added Detection was performed. COMPARISON: Comparison is made with prior study to August 07, 2017 and July 31, 2016. FINDINGS: Breast Composition: The breasts are heterogeneously dense, which may obscure small masses. There are no dominant masses or suspicious calcifications. A Sterotactic tissue clip marker is seen in the deep slightly lateral Portion of the right breast. This is unchanged. No other significant abnormalities are identified. There has been no significant change since the prior study. BI/SCREENING MAMM (CAD), BILAT IMPRESSION: Stable bilateral screening mammogram. Yearly follow-up mammogram recommended. (A) ASSESSMENT CATEGORY: BIRADS Category 2: Benign. A letter regarding these results will be sent to the patient by the facility within 30 days. Approximately 10% of breast cancers are not detected by mammography. A normal mammogram should not delay biopsy of a clinically suspicious abnormality. [id number] Electronically Signed: Raz Berg MD at 9:56 EDT Tel [phone], Service support , CC: Jacki Oscar MD Food Science Professor: Signed ALLERGIES ALLERGIES No Allergies Records FoundENCOUNTERS ENCOUNTERS ADMIT/DISCHARGE ACCOUNT ADMITTING ENCOUNTER LOCATION SOURCE NUMBER CLASS 11/16/2018 [id number] [place] [facility] ing:PT Repository 11/11/2018 [id number] Amb[place] [facility] ing:MTLAB Repository 11/03/2018 [id number] Amb[place] [facility] ing:PSN Repository 10/05/2018 [id number] Amb[place] 5 [facility] ing:LAB.FUTUR Repository E 09/28/2018 [id number] Amb[place] [facility] ing:MTLAB Repository 09/11/2018 [id number] Amb[place] 8 [facility] ing:LAB Repository 08/17/2018 [id number] Amb[place] 9 [facility] ing:OPBI Repository PAYERS PAYERS ENCOUNTER GUARANTOR PAYER SUBSCRIBER SOURCE 11/16/2018 JAKE Rincon Primary Insurance:UMR JOEL L [place] [id number] CADE [id number] SETTLESDOB: [facility] Number: [id number], [place] [id number] Repository [address]Udr: 330) Date:4281-70-98JA [phone] () [address] [place] [phone]: 11/16/2018 Secondary NOT GIVENUNK [place] Insurance:SELF PAY [facility] Number: Effective Repository Date:2018-10-26 11/11/2018 JAKE Rincon Primary Insurance:UMR JOEL L [place] [id number] CADE [id number] SETTLESDOB: [facility] [place] Number: [id number], [place] [id number] Repository [address]Qxn: 330) Date:5286-59-73LQ [phone] () [place] [address]IT: 11/11/2018 Secondary NOT GIVENUNK [place] Insurance:SELF PAY [facility] Number: Effective Repository Date:2018-11-11 11/03/2018 JAKE R Primary Insurance:UMR JOEL L [place] [id number] CADE [id number] SETTLESDOB: [facility] [place] Number: [id number], [place] [id number] Repository [address]Wtm: (330) Date:9846-03-88LB [phone] () [address] [place] [phone]: 11/03/2018 Secondary NOT GIVENUNK [place] Insurance:SELF PAY [facility] Number: Effective Repository Date:2018-11-02 10/05/2018 JAKE R Primary Insurance:UMR JOEL L [place] [id number] CADE [id number] SETTLESDOB: [facility] Number: [id number], [place] [id number] Repository [address]Gzd: (330) Date:1227-82-79UX [phone] () [address] [place] [address]YU: 10/05/2018 Secondary NOT GIVENUNK [place] Insurance:SELF PAY [facility] Number: Effective Repository Date:2018-10-04 09/28/2018 JAKE R Primary JAKE R [place] [id number] Insurance:ANTHEMPolic OLIVERDOB: [facility] y Number: [id number], [place] [id number] Repository [address]Xye: (330) Date:0283-54-12PU [phone] () [place], [place] [address]GO: 09/28/2018 Secondary NOT GIVENUNK [place] Insurance:SELF PAY [facility] Number: Effective Repository Date:2018-09-28 09/11/2018 JAKE R Primary JAKE R [place] [id number] Insurance:ANTHEMPolic OLIVERDOB: [facility] y Number: [id number], [place] [id number] Repository [address]Eag: (330) Date:7307-06-80OV [phone] () [place], [place] [address]RP: 09/11/2018 Secondary NOT GIVENUNK [place] Insurance:SELF PAY [facility] Effective Repository Date:2018-09-11 08/17/2018 Jake R Primary Jake [id number] Insurance:ANTHEMPolic OliverDOB: [place] y Number: [id number] [id number] Repository [address]Gtj: (330) Date:7785-27-98NU [phone] () [place], [place] [address]SH: 08/17/2018 Secondary NOT GIVENUNK [place] Insurance:SELF PAY [facility] Number: Effective Repository Date:2018-07-26
== END 2018-11-16 19:00 | disposition home or self-care (01) ==
LOC: PT 10:30
PROVIDERS: Family Provider Family Medicine; PCP Family Medicine; Referring Provider Family Medicine; Visit Provider Family Medicine
DX: G62.9 Polyneuropathy, unspecified (principal)
CPT/HCPCS: 97110; 97162; 97530

== ENCOUNTER → 2018-11-22 15:23 | Outpatient (CLI) | payer OTHER, SELFPAY ==
--- NOTE | 2018-11-22 15:29 | MRI_ITS ---
STUDY: MRI LUMBAR SPINE WITHOUT CONTRAST REASON FOR EXAM: Female, 58 years old. Nerve impingement. Low back and left foot leg pain. TECHNIQUE: Standardized fat and water weighted pulse sequences were obtained in the sagittal and axial planes. COMPARISON: None FINDINGS: T12-L1: Normal endplates. Normal disc height, hydration and morphology. Normal bilateral facet joints. Normal central canal and bilateral lateral recesses. Normal bilateral intervertebral neural foramina. There is straightening of the normal lumbar lordosis. There is no substantial scoliosis. Normal conus medullaris that terminates at the L1 level. L1-2: Normal endplates. Normal disc height, hydration and morphology. Normal bilateral facet joints. Normal central canal and bilateral lateral recesses. Normal bilateral intervertebral neural foramina. L2-3: Schmorl's nodes. Endplates are otherwise unremarkable.. Normal disc height, hydration and morphology. Normal bilateral facet joints. Normal central canal and bilateral lateral recesses. Normal bilateral intervertebral neural foramina. L3-4: Schmorl's nodes. Disc dehydration and mild disc space narrowing. Normal bilateral facet joints. Normal central canal and bilateral lateral recesses. Normal bilateral intervertebral neural foramina. L4-5: Normal endplates. Disc dehydration and moderate disc space narrowing. There is mild facet hypertrophy. There is a mild, noncompressive spondylotic bar. Normal central canal and bilateral lateral recesses. There is mild inferior foraminal encroachment. No evidence of neural compromise. L5-S1: Edematous endplate changes. There is marked disc space narrowing. There is a mild, noncompressive spondylotic bar. Mild facet hypertrophy. There is mild foraminal encroachment due to spurring and facet hypertrophy. Normal central canal and bilateral lateral recesses. Normal visualized sacral ala. Normal visualized paraspinous soft tissue structures. MRI/Spine Lumbar (Routine) IMPRESSION: 1. Mild foraminal encroachment at L4-5 and L5-S1. 2. Degenerative changes as noted above. Electronically Signed: Sherrill Valdes MD at 17:56 EST Tel , Service support ,
== END ==
PROVIDERS: Family Provider Family Medicine; PCP Family Medicine; Referring Provider Family Medicine; Visit Provider Family Medicine
DX: G58.9 Mononeuropathy, unspecified (principal)
CPT/HCPCS: 72148

== ENCOUNTER → 2018-12-14 14:28 | Outpatient (CLI) | payer OTHER, SELFPAY ==
[2018-12-14 15:32] LABS: AST(SGOT) 28 U/L (15-37); Alanine Aminotransfer ALT/SGPT 40 U/L (13-56); Albumin, Serum 3.6 g/dL (3.2-5.0); Alkaline Phosphatase 316 U/L (45-117); Bilirubin, Direct 0.21 mg/dL (0.00-0.30); GGTP 441 U/L (5-55); Globulin 4.7 g/dL (2.2-4.2); Protein, Total 8.3 g/dL (6.4-8.2)
[2018-12-14 16:10] LABS: Erythrocyte Sedimentation Rate 14 mm/hr (0-30)
[2018-12-16 15:15] LABS: Ceruloplasmin 31.7 mg/dL (19.0-39.0)
[2018-12-17 09:37] LABS: ANTINUCLEAR ANTIBODIES DIRECT Positive (Negative); Anti-Mitochondrial AB 98.8 Units (0.0-20.0); Anti-Smooth Muscle ABS 14 Units (0-19); HEPATITIS B SURFACE AG Negative (Negative); Hep C Antibodies 0.1 s/co ratio (0.0-0.9)
== END ==
PROVIDERS: Family Provider Family Medicine; PCP Family Medicine; Referring Provider Family Medicine; Visit Provider Family Medicine
DX: K75.9 Inflammatory liver disease, unspecified (principal)
CPT/HCPCS: 36415; 80076; 82390; 82977; 83516; 85652; 86038; 86803; 87340

== ENCOUNTER → 2018-12-21 07:43 | Outpatient (CLI) | payer OTHER, SELFPAY ==
--- NOTE | 2018-12-21 07:55 | US_ITS ---
STUDY: ABDOMINAL ULTRASOUND - RIGHT UPPER QUADRANT REASON FOR VISIT: Female, 58 years old. Elevated liver enzymes. Hepatic cholestasis. TECHNIQUE: Ultrasound evaluation of the right upper quadrant was performed with real-time and static carrillo-scale imaging. TECHNICAL QUALITY: Adequate. COMPARISON: None. FINDINGS: Liver: The liver measures 16.0 cm. There is normal echogenicity of the liver. The bile ducts are within normal limits. There is hepatic color flow. The direction of portal flow is hepatopetal. There is no demonstrated mass lesion. Gallbladder: Normal distended gallbladder. The gallbladder wall measures 2.6 mm. There is a negative sonographic Wallace's sign. There is no pericholecystic fluid. There are no gallstones. Common Bile Duct (C.B.D.): The common bile duct measures 4.3 mm. Pancreas: Normal size of the head, body and tail of the pancreas. There is normal echogenicity of the pancreas. There is no demonstrated pancreatic mass or cyst. Right Kidney: Normal size of the right kidney. The right kidney measures 11.6 cm x 5 cm x 6.1 cm. Normal renal cortex. The right cortex measures 1.4 cm. There is no demonstrated renal mass or cyst. There is no right hydronephrosis. US/Abdomen Limited IMPRESSION: Normal right upper quadrant ultrasound examination. Electronically Signed: Raz Berg MD at 10:18 EST Tel [phone], Service support ,
--- OUTSIDE RECORDS SUMMARY | 2019-02-22 07:52 | XMS RPT_ITS ---
:1960 Author Organization OHIP Support Name Relationship Address Phone SETTLES, JOEL Unavailable [address] + [place] [address] UE Unavailable Unavailable Unavailable SETTLES, JOEL Unavailable [address] + [place] [address] UE Unavailable Unavailable Unavailable SETTLES, JOEL Unavailable [address] + [place] [address] UE Unavailable Unavailable Unavailable SETTLES, JOEL Unavailable [address] + [place] [address] UE Unavailable Unavailable Unavailable SETTLES, JOEL Unavailable [address] + [place] [address] UE Unavailable Unavailable Unavailable SETTLES, JOEL Unavailable [address] + [place] [address] UE Unavailable Unavailable Unavailable SETTLES, JOEL Unavailable [address] + [place] [address] UE Unavailable Unavailable Unavailable [employer] Unavailable [address] + [place] [address] SETTLES, JOEL Unavailable [address] + [place] [address] [employer] Unavailable [address] + [place] [address] SETTLES, JOEL Unavailable [address] + [place] [address] [employer] Unavailable [address] + [place] [address] SETTLES, JOEL Unavailable [address] + [place] [address] Care Team Providers Name Role Phone Jolliff, [...] 11/24/2018 Unknown G62.9 - Jolliff, Jacki Active [facility] unspecified / Hospital G62.9(ICD-10) Repository 10/11/2018 Unknown R74.8 - Abnormal Jolliff, Jacki [facility] levels of other Community serum enzymes / Hospital R74.8(ICD-10) Repository 09/11/2018 Unknown B35.1 - Efren Rose Active [facility] unguium / Community B35.1(ICD-10) Hospital Repository PROCEDURES PROCEDURES No Procedure Records FoundRESULTS RESULTS ABDOMEN LIMITED Observed: 12/21/2018 Status: F Source: [place] 7:55 AM [facility] REPOSITORY [facility] Imaging Services [address] [place] [address] Abdomen Limited MR#: [id number] Acct: [id number] Name: SHAY NOLASCO Mckenzie Rep #: [id number] : 1960 F 58 From: Raz Berg MD PCP: Jacki Oscar MD Status: REG CLI Study: Abdomen Limited Date of Exam: 12/21/18 Exam# [id number] Ordering Dr: Jesús Chandler MD STUDY: ABDOMINAL [...] Raz Berg MD at 10:18 EST Tel [phone], Service support , CC: Jacki Oscar MD; Jesús Chandler Pararescue Manager: Signed LIVER PROFILE Collected: 12/14/2018 Status: F Source: [place] 2:31 PM [facility] [place] TYPE CODE TESTS RESULT OUT OF [...] 0.21 Performed By: #### L500.3400, L501.5100 #### [facility] [address] [place], [address] GGTP Collected: 12/14/2018 Status: F Source: [place] 2:31 PM [facility] [place] TYPE CODE TESTS RESULT OUT OF RANGE REFERENCE UNITS LAB L501.5100 5-55 U/L High GGTP 441 Performed By: #### L500.3400, L501.5100 #### [facility] [address] [place], [address] ERYTHROCYTE SED RATE Collected: 12/14/2018 Status: F Source: [place] 2:31 PM [facility] [place] TYPE CODE TESTS RESULT OUT OF RANGE REFERENCE UNITS LAB L102.0000 0-30 mm/hr Normal SED RATE 14 Performed By: #### L101.9900 #### [facility] [address] [place], [address] ANTI-MITOCHONDRIAL AB Collected: Status: F Source: [place] 12/14/2018 2:31 PM [facility] [place] TYPE CODE TESTS RESULT OUT OF [...] Status: F Source: [place] DIRECT 2:31 PM [facility] [place] TYPE CODE TESTS RESULT OUT OF REFERENCE UNITS RANGE LAB L3100.5475 Negative High Positive CHRISTINE-DIRECT Result Comment: Performed at: [facility] Lab[address] [id number] Epic Trainer: Jesús Chu PhD, Phone: [phone] Performed By: #### L800.1280, L3100.5475 #### [facility] (refer to report for specific site) refer to report for address and phone number ANTI-SMOOTH MUSCLE ABS Collected: 12/14/2018 Status: F Source: [place] 2:31 PM [facility] TYPE CODE TESTS RESULT OUT OF [...] Status: F Source: [place] AG 2:31 PM [facility] TYPE CODE TESTS RESULT OUT OF RANGE REFERENCE UNITS LAB L3100.0400 Negative Normal HB Negative SURF AG Result Comment: Performed at: [facility] [id number] Epic Trainer: Jesús Chu PhD, Phone: [phone] Performed By: #### L803.2200, L3100.0390, L3100.0625, L3400.0700 #### [facility] (refer to report for specific site) refer to report for address and phone number HEPATITIS C ANTIBODIES Collected: 12/14/2018 Status: F Source: [place] 2:31 PM [facility] TYPE CODE TESTS RESULT OUT OF RANGE REFERENCE UNITS LAB L3100.0650 0.0-0.9 s/co ratio Normal HEP C AB 0.1 Result Comment: Negative: < 0.8 Indeterminate: 0.8 - 0.9 Positive: > 0.9 The CDC recommends that a positive HCV antibody result be followed up with a HCV Nucleic Acid Amplification test (978989). Performed By: #### L803.2200, L3100.0390, L3100.0625, L3400.0700 #### [facility] (refer to report for specific site) refer to report for address and phone number CERULOPLASMIN Collected: 12/14/2018 Status: F Source: [place] 2:31 PM [facility] TYPE CODE TESTS RESULT OUT OF RANGE REFERENCE UNITS LAB L3400.0700 19.0-39.0 mg/dL Normal CERULOPLAS 1560 31.7 Performed By: #### L803.2200, L3100.0390, L3100.0625, L3400.0700 #### [facility] (refer to report for specific site) refer to report for address and phone number SPINE LUMBAR Observed: 11/22/2018 Status: F Source: [place] (ROUTINE) 3:29 PM [facility] Imaging Services [address] [place] [address] Spine Lumbar (Routine) MR#: [id number] Acct: [id number] Name: SHAY NOLASCO Rep #: [id number] : 1960 F 58 From: Sherrill Valdes MD PCP: Jacki Oscar MD Status: REG CLI Study: Spine Lumbar (Routine) Date of Exam: 11/22/18 Exam# [id number] Ordering Dr: Jacki Oscar MD STUDY: MRI [...] Service support , CC: Jacki Oscar MD Pararescue Manager: Signed PT D/C SUMMARY (1) Observed: 11/17/2018 Status: F Source: [place] 7:00 AM [facility] [address] [place] [address]. [address] [place], [place] [address] Fax REHABILITATION SERVICES DISCHARGE SUMMARY MR#: [id number] Acct: [id number] Name: SHAY NOLASCO Rep #: [id number] : 1960 58 From: Elvis MCGEET, OCS, CSCS Referring Dr.: Jacki Oscar MD Status: REG RCR Insurance: UMR CADE [id number] SELF PAY INSURANCE HP - PT D/C Summary It has been my pleasure to treat SHAY NOLASCO under orders from Jacki Oscar MD, [...] please feel free to call me at [phone]. Thank you for the referral of this patient. Sincerely, Elvis West, ARELYT, OCS, CSCS <Electronically signed by Elvis West DPT, OCS, CSCS> 11/17/18 0700 CC: Jacki Oscar MD EBG Signed ALKALINE PHOSPHATASE Collected: 11/11/2018 Status: F Source: [place] 8:24 AM [facility] TYPE CODE TESTS RESULT OUT OF RANGE REFERENCE UNITS LAB L501.4305 45-117 U/L High ALK P 307 Performed By: #### L501.4305 #### [facility] [address] [place], [address] NCS AND/OR EMG Observed: 11/03/2018 Status: F Source: [place] PATIENT 3:18 PM [facility] REPOSITORY [facility] Pulmonary Services/Neurology [address] [place] [address] MR#: [id number] Acct: [id number] Name: SHAY NOLASCO Rep #: [id number] : 1960 58 From: Shanae Rodríguez MD Referring Dr: Jacki Oscar MD Status: REG CLI Ordering Dr: Date: Location: [facility] Sex: F C NCS and/or EMG Patient [...] do not hesitate to contact me 11/03/18 7449 <Electronically signed by Shanae Rodríguez MD> Date Shanae Rodríguez MD CC: Jacki Oscar MD; Shanae Rodríguez Date Dictated: 11/03/181418 Date Transcribed: 11/03/181418 Pararescue Manager: PREET Signed INITAL EVALUATION (1) Observed: 10/28/2018 Status: F Source: [place] - PT 9:22 AM [facility] [place] [facility] [address] [place] [address] Fax REHABILITATION SERVICES INITIAL EVALUATION MR#: [id number] Acct: [id number] Name: SHAY NOLASCO Rep #: [id number] : 1960 58 From: Elvis West DPT, OCS, CSCS Referring Dr.: Jacki Oscar MD Status: REG RCR Insurance: R CADE [id number] SELF PAY INSURANCE Patient's Visit Information SHAY [...] to be FAXED BACK to us at [phone] for Medicare purposes. For Medicare only, by signing this I certify the plan of care. Please let me know if there are questions or concerns regarding this plan of care. Physician Signature: Date: <Electronically signed by Elvis West DPT, OCS, CSCS> 10/28/18 0922 CC: Jacki Oscar MD EBG Signed MISCELLANEOUS LAB Collected: 10/05/2018 Status: F Source: [place] PROCEDURE 7:04 AM [facility] Order Comment: Comments: ALK PHOS ISO [id number] TIGER/REF Test(s) Ordered: ALK PHOS ISO [id number] TIGER/REF TYPE CODE TESTS RESULT OUT OF RANGE REFERENCE UNITS LAB L801.1541 Normal MIS LAB TEST Result Comment: TEST RESULT FLAGS UNITS REF INTERVAL Alk Phos Isoenzyme Alkaline Phosphatase 319 High IU/L 39 - 117 Liver Fraction: 66 % 18 - 85 Bone Fraction: 34 % 14 - 68 Intestinal Frac.: 0 % 0 - 18 TESTING PERFORMED AT [facility]. ORIGINAL REPORT ON FILE IN LAB CONTAINS ADDITIONAL TEST SITE INFORMATION. Performed By: #### L801.1541 #### [facility] [address] [place], [address] LIVER PROFILE Collected: 09/28/2018 Status: F Source: [place] 1:52 PM [facility] TYPE CODE TESTS RESULT OUT OF [...] BILI 0.22 Performed By: #### L500.3400 #### [facility] [place], [address] CBC W/DIFF, AUTOMATED Collected: 09/11/2018 Status: F Source: [place] 9:59 AM [facility] TYPE CODE TESTS RESULT OUT OF [...] Lymph 2.55 Performed By: #### L100.0100 #### [facility] [address] [place], [address] AST(SGOT) Collected: 09/11/2018 Status: F Source: [place] 9:59 AM [facility] TYPE CODE TESTS RESULT OUT OF RANGE REFERENCE UNITS LAB L501.4100 15-37 U/L High AST 42 Performed By: #### L501.4100, L501.4405 #### [facility] [address] [place], [address] ALANINE AMINOTRANSFERAS Collected: 09/11/2018 Status: F Source: [place] (SGPT) 9:59 AM [facility] TYPE CODE TESTS RESULT OUT OF RANGE REFERENCE UNITS LAB L501.4405 13-56 U/L Normal ALT 53 Performed By: #### L501.4100, L501.4405 #### [facility] [address] [place], [address] SCREENING MAMM (CAD), Observed: 08/17/2018 Status: F Source: [place] BILAT 7:35 AM [facility] Imaging Services [address] [place] [address] SCREENING MAMM (CAD), BILAT MR#: [id number] Acct: [id number] Name: SHAY NOLASCO Rep #: [id number] : 1960 F 58 From: Raz Berg MD PCP: Jacki Oscar MD Status: [facility] Study: SCREENING MAMM (CAD), BILAT Date of Exam: 08/17/18 Exam# [id number] Ordering Dr: Jacki Oscar MD MAMMOGRAPHY - [...] delay biopsy of a clinically suspicious abnormality. [id number] Electronically Signed: Raz Berg MD at 9:56 EDT Tel [phone], Service support , CC: Jacki Oscar MD Pararescue Manager: Signed ALLERGIES ALLERGIES No Allergies Records FoundENCOUNTERS ENCOUNTERS ADMIT/DISCHARGE ACCOUNT ADMITTING ENCOUNTER LOCATION SOURCE NUMBER CLASS 12/21/2018 [id number] [facility] [place] [facility] ing:US Repository 12/14/2018 [id number] [facility] ing:MTLAB Repository 11/22/2018 [id number] [facility] ing:MRI Repository 11/16/2018/ [id number] Ambulatory [place] [facility] 8 0 [facility] ing:PT Repository 11/11/2018 [id number] [facility] [place] [facility] ing:MTLAB Repository 11/03/2018 [id number] Amb[facility] [place] [facility] ing:PSN Repository 10/05/2018 [id number] [facility] [place] [facility] ing:LAB.FUTUR Repository E 09/28/2018 [id number] [facility] [place] 7 [facility] ing:MTLAB Repository 09/11/2018 [id number] [facility] ing:LAB Repository 08/17/2018 [id number] [facility] [place] [facility] ing:OPBI Repository PAYERS PAYERS ENCOUNTER GUARANTOR PAYER SUBSCRIBER SOURCE 12/21/2018 SHAY Rincon Primary Insurance:UMR JOEL L [facility] [id number] CADE [id number] SETTLESDOB: [facility] Number: [id number], [place] [id number] Repository [address]Ktw: 330) Date:9003-35-25XU [phone] () [address] [place] [phone]: 12/21/2018 Secondary NOT GIVENUNK [facility] Insurance:SELF PAY [facility] Number: Effective Repository Date:2018-12-14 12/14/2018 SHAY Rincon Primary Insurance:UMR JOEL L [facility] [id number] CADE [id number] SETTLESDOB: [facility] [address] Number: [id number], [place] [id number] Repository [address]Wsb: 330) Date:8296-55-23OP [phone] () [address] [place] [phone]: 12/14/2018 Secondary NOT GIVENUNK [facility] Insurance:SELF PAY [facility] Number: Effective Repository Date:2018-12-14 11/22/2018 SHAY Rincon Primary Insurance:UMR JOEL L [place] [id number] CADE [id number] SETTLESDOB: Community [address] Number: [id number], [place] [id number] Repository [address]Sca: (330) Date:4381-23-57LP [phone] () [address] [place] [phone]: 11/22/2018 Secondary NOT GIVENUNK [facility] Insurance:SELF PAY [facility]: Effective Repository Date:2018-11-15 11/16/2018 SHAY R Primary Insurance:UMR JOEL L [place] [id number] CADE [id number] SETTLESDOB: [facility] [address] Number: [id number], [place] [id number] Repository [address]Ltj: (330) Date:2729-28-34PB [phone] () [address] [place] [phone]: 11/16/2018 Secondary NOT GIVENUNK [facility] Insurance:SELF PAY [facility] Number: Effective Repository Date:2018-10-26 11/11/2018 SHAY R Primary Insurance:UMR JOEL L [facility] [id number] CADE [id number] SETTLESDOB: Community [place] Number: [id number], [place] [id number] Repository [address]Mrf: (330) Date:5896-12-29VR [phone] () [address] [place] [phone]: 11/11/2018 Secondary NOT GIVENUNK [place] Insurance:SELF PAY [facility] Number: Effective Repository Date:2018-11-11 11/03/2018 SHAY R Primary Insurance:UMR JOEL L [facility] [id number] CADE [id number] SETTLESDOB: Community [place] Number: [id number], [place] [id number] Repository [address]Vrn: (330) Date:5776-91-06DS [phone] () [address] [place] [phone]: 11/03/2018 Secondary NOT GIVENUNK [place] Insurance:SELF PAY [facility] Effective Repository Date:2018-11-02 10/05/2018 SHAY Rincon Primary Insurance:UMR JOEL L [facility] [id number] CADE [id number] SETTLESDOB: [facility] [address] Number: [id number], [place] [id number] Repository [address]Tna: 330) Date:3516-73-64KM [phone] () [address], [place] [address]PC: 10/05/2018 Secondary NOT GIVENUNK [place] Insurance:SELF PAY [facility] Number: Effective Repository Date:2018-10-04 09/28/2018 SHAY R Primary SHAY R [facility] [id number] Insurance:ANTHEMPolic OLIVERDOB: [facility] BATDO y Number: [id number], [place] [id number] Repository [address]Iet: 330) Date:4823-29-93JC [phone] () [place]HQ[place]UW, [place] [address]NV: 09/28/2018 Secondary NOT GIVENUNK [place] Insurance:SELF PAY [facility] Number: Effective Repository Date:2018-09-28 09/11/2018 SHAY R Primary SHAY R [facility] [id number] Insurance:ANTHEMPolic OLIVERDOB: [facility] [address] y Number: [id number], [place] [id number] Repository [address]Xyc: (330) Date:1535-67-57EC [phone] () [address]QDQFVFU, [place] [address]AF: 09/11/2018 Secondary NOT GIVENUNK [facility] Insurance:SELF PAY [facility] Number: Effective Repository Date:2018-09-11 08/17/2018 Shay R Primary Shay R [facility] [id number] Insurance:ANTHEMPolic OliverDOB: Community [place] y Number: [id number], [place] [id number] Repository [address]Gdy: (330) Date:3491-29-95HL [phone] () [address]LFIXDIL, [place] [address]ER: 08/17/2018 Secondary NOT GIVENUNK [place] Insurance:SELF PAY [facility] Number: Effective Repository Date:2018-07-26
== END ==
PROVIDERS: Family Provider Family Medicine; PCP Family Medicine; Referring Provider Internal Medicine Gastroenterology; Visit Provider Internal Medicine Gastroenterology
DX: K75.89 Other specified inflammatory liver diseases (principal)
CPT/HCPCS: 76705

== ENCOUNTER → 2019-01-12 08:56 | Outpatient (CLI) | payer OTHER, SELFPAY ==
[2019-01-12] VITALS (10 sets, daily range): BP systolic 103–127; BP diastolic 52–76; PULSE 55–69; RESP 12–18; TEMP 36.8; O2SAT 92–98; BMI 22.9
--- NOTE | 2019-01-12 09:11 | CT_ITS ---
PROCEDURE: CT DIRECTED CORE LIVER BIOPSY INDICATION: Female, 58 years old. Hepatic cirrhosis. PHYSICIAN: Dr. Otis FULTON CONSENT: Written informed consent was obtained having explained the risks, benefits and alternatives in detail with the patient who accepted the risks and agreed to proceed. Laboratory review and clinical assessment was performed. CONSCIOUS SEDATION PROTOCOL: The Drugs used were: 2 mg Versed, IV., and 50 mcg Fentanyl, IV. The sedation time was: 15 minutes. Conscious sedation was started at 10:11 AM and terminated at 10:26 AM. The conscious sedation protocol was independently monitored. RADIATION DOSAGE (If Supplied By Facility): CTDIvol = ( 27 ) mGy, DLP = ( 397.81 ) mGycm Individualized dose optimization techniques were used for this CT. TECHNIQUE: Using CT image guidance with image documentation, a suitable location in the right lobe of the liver was identified. Using a right lateral approach, puncture of the liver was uneventful with an 18-gauge core needle system. 4, 18-gauge core samples were obtained, and submitted in formalin to the pathologist for further assessment. Followup CT scan revealed no distinct sequelae. CT/Biopsy/Inj or Needle Placement IMPRESSION: 1. CT directed core needle biopsy of the liver, using CT image guidance with image documentation as described. 2. Conscious Sedation protocol utilized with independent monitoring. Electronically Signed: Raz Berg MD at 12:19 EST , Service support ,
[2019-01-12 09:19] LABS: Platelet Count 243 K/mm3 (150-450)
[2019-01-12 09:22] LABS: International Normalized Ratio 0.9; Prothrombin Time (Protime)PT. 12.1 SECONDS (11.7-14.9)
[2019-01-12 09:23] LABS: Partial Thromboplast Time 30.2 Seconds (24.1-36.2)
[2019-01-12] MEDS: fentaNYL 100 MCG/2 ML Ampul IV (10:11)
[2019-01-12] MEDS: Midazolam 2 MG/2 ML Syringe IV (10:11)
--- NOTE | 2019-01-12 10:25 | LIVB_PTH ---
PATIENT: JAKE NOLASCO LOC: CT U#:[id number] AGE/SX: 65/F ROOM: RE01/12/[address]: Dr. Jesús Chandler MD : 1960 BED: DIS: SPEC #: [id number] RECD: 01/12/19 10:40 STATUS: ALAINA RERoger #: [id number] MAGGIE: 01/12/19 10:[address]: Jesús Chandler DEPT: SURGICAL PATHOLOGY RECD BY: Sandeep Jalloh ENTERED: 01/12/19 13:26 SP TYPE: LIVER BX OTHR DR: Dr. Jacki Oscar MD Tissues: Liver, NOS Procedures: PAS with Diastase (control) Elastin Stain (control) Trichrome (control) Special Stain Group II PAS Stain (control) Surgery Specimen Level V Retic (control) Iron Stain (control) HEADER OPERATION: CT-guided liver biopsy PRE-OP DIAGNOSIS: Cirrhosis TISSUE SUBMITTED: Liver x3, 18 gauge MICROSCOPIC DIAGNOSIS Liver, CT-guided core biopsy: Liver parenchymal tissue with changes consistent with primary biliary cirrhosis. See microscopic description and comment. KHOI:venkatesh 01/13/19 COMMENT Correlation with clinical, radiologic, laboratory findings and appropriate follow up are necessary. Case has been reviewed in consultation with Dr. Luciano who concurs with the above diagnosis. IDC:JOB MICROSCOPIC DESCRIPTION Slides are reviewed. The specimen shows pieces of liver parenchymal tissue with preserved lobular architecture. Hepatocytes show reactive changes and focal area with pigment consistent with bile pigment. Significant lobular inflammation is not seen. The portal areas show mild to moderate chronic inflammation, consisting predominantly lymphocytes and rare plasma cells. Many of the portal areas show destruction of bile duct and bile ductular proliferation. Focal area suggestive of granuloma formation is also noted. Mild piece meal necrosis is also noted. Iron stain shows absence iron. PAS stain with and without diastase do not show any accumulation of abnormal protein. Trichrome stain show increased portal, periportal fibrosis and focal bridging fibrosis. Reticulin and elastic stains are also used in the evaluation of the specimen. All stains are performed with appropriate match control. GROSS DESCRIPTION Received is one container labeled with the patient's name and not further designated. The specimen consists of multiple irregular and elongated fragments of light jc soft tissue that in aggregate measure 0.2 x 0.1 x <0.1 cm. The specimen is totally submitted in one cassette. / AM:venkatesh 01/12/19 TC:5 CPT: 15087, 93826 x6
== END ==
PROVIDERS: Family Provider Family Medicine; PCP Family Medicine; Referring Provider Internal Medicine Gastroenterology; Visit Provider Internal Medicine Gastroenterology
DX: K74.3 Primary biliary cirrhosis (principal); K75.89 Other specified inflammatory liver diseases
CPT/HCPCS: 47000; 36415; 77012; 85049; 85610; 85730; 88307; 88313; 99156; J7040; A4216

== ENCOUNTER → 2019-02-10 08:02 | Outpatient (CLI) | payer OTHER, SELFPAY ==
[2019-01-12 09:40] VITALS: BMI 22.9
[2019-02-10 10:31] LABS: ALB/GLOB Ratio 0.8 RATIO (0.9-2.4); AST(SGOT) 28 U/L (15-37); Alanine Aminotransfer ALT/SGPT 41 U/L (13-56); Albumin, Serum 3.4 g/dL (3.2-5.0); Alkaline Phosphatase 283 U/L (45-117); Anion Gap 5 (5-15); BUN 16 mg/dL (7-18); BUN/Creat Ratio 22.3 RATIO (10-20); Calcium,Total 9.1 mg/dL (8.5-10.1); Chloride 107 mmol/L (98-107); Creatinine, Serum 0.72 mg/dL (0.55-1.02); EST Glomerular Filtration Rate 89 mL/min (>60); Est Glom Filt Rate - Afr Amer 108 mL/min (>60); GGTP 383 U/L (5-55); Globulin 4.3 g/dL (2.2-4.2); Glucose 83 mg/dL (74-106); Potassium 4.2 mmol/L (3.5-5.1); Protein, Total 7.7 g/dL (6.4-8.2); Sodium Level 139 mmol/L (136-145); Vitamin D,25 Hydroxy 26.2 ng/mL (29.95-100.01)
== END ==
PROVIDERS: Family Provider Family Medicine; PCP Family Medicine; Referring Provider Internal Medicine Gastroenterology; Visit Provider Internal Medicine Gastroenterology
DX: K74.3 Primary biliary cirrhosis (principal)
CPT/HCPCS: 36415; 80053; 82306; 82977

== ENCOUNTER → 2019-02-15 08:21 | Outpatient (CLI) | payer OTHER, SELFPAY ==
[2019-01-12 09:40] VITALS: BMI 22.9
--- NOTE | 2019-02-15 08:30 | BD_ITS ---
STUDY: DUAL ENERGY X-RAY ABSORPTIOMETRY / DXA REASON FOR EXAM: Female, 59 years old. The patient is postmenopausal. Loss of height. TECHNIQUE: Bone Mineral Density (BMD) measurements of lumbar spine and bilateral hips were obtained. COMPARISON: None. FINDINGS: Lumbar Spine (L1-L4): g/cm2 (0.910) / T-score (-2.3) / Z-score (-1.2) Findings are suggestive of osteopenia with a high fracture risk. Left Femur Total: g/cm2 (0.762) / T-score (-1.9) / Z-score (-1.1) Left Femoral Neck: g/cm2 (0.787) / T-score (-1.8) / Z-score (-0.7) Right Femur Total: g/cm2 (0.717) / T-score (-2.3) / Z-score (-1.5) Right Femoral Neck: g/cm2 (0.765) / T-score (-2.0) / Z-score (-0.8) BD/Dexa Bone Density Study IMPRESSION: The patient is considered normal as outlined below according to World Darrion Organization (WHO) criteria with a high fracture risk. . Reference Information: The T-score is the number of standard deviations above or below the standard which is normal for young adults at their peak bone mineral density. The World Health Organization (WHO) interprets the T-scores as follows: Above -1 Normal bone density Between -1 and -2.5 Osteopenia Equal to / or below -2.5 Osteoporosis As a practical clinical guideline, osteopenia may be graded as follows: Mild -1 through -1.5 Moderate -1.6 through -2.0 Severe -2.1 through -2.4 The Z-score is the number of standard deviations above or below age-matched controls. A Z-score of less than -1.5 would be considered abnormal. References: 1. NIH Osteoporosis and Related Bone Diseases http://www.osteo.org 2. International Society for Clinical Densitometry http://www.iscd.org 3. National Osteoporosis Foundation http://www.nof.org Electronically Signed: Raz Berg, at 8:23 EDT , Service support ,
== END ==
PROVIDERS: Family Provider Family Medicine; PCP Family Medicine; Referring Provider Internal Medicine Gastroenterology; Visit Provider Internal Medicine Gastroenterology
DX: K74.3 Primary biliary cirrhosis (principal)
CPT/HCPCS: 77080

== ENCOUNTER → 2019-05-12 14:41 | Outpatient (CLI) | payer OTHER, SELFPAY ==
[2019-01-12 09:40] VITALS: BMI 22.9
[2019-05-12 15:46] LABS: Absolute Lymphocyte Count 2.79 X10^3/ul (0.83-4.51); Absolute Neutrophil Count 6.2 X10^3/uL (2.0-7.7); Basophil# 0.03 X10^3/uL; Basophil% 0.3 % (0-1); Eosinophil# 0.13 X10^3/uL; Eosinophils% 1.3 % (0-5); Hematocrit 47.8 % (37-47); Hemoglobin 16.1 g/dl (12.0-15.0); Lymphocyte # 2.79 X10^3/ul (4.0); Lymphocyte % 27.9 % (19-41); Mean Corp Hgb Conc 33.7 g/gl (32-36); Mean Corpuscular Hgb 30.7 pg (27.0-32.0); Mean Platelet Vol. 11.7 fl (6.2-12.0); Monocyte# 0.89 X10^3/uL; Monocyte% 8.9 % (0-10); Neutrophil # 6.16 X10^3/uL (2.7-7.7); Neutrophil % 61.5 % (47-70); Platelet Count 211 K/mm3 (150-450); RBC Distribution Width CV 12.4 % (11.6-14.6); RBC Distribution Width SD 41.3 fl (35.1-43.9); Red Blood Count 5.25 M/mm3 (4.2-5.4)
[2019-05-12 15:49] LABS: POSITIVE COUNT NO; POSITIVE DIFFERENTIAL NO; POSITIVE MORPHOLOGY NO
[2019-05-12 16:25] LABS: ALB/GLOB Ratio 0.8 RATIO (0.9-2.4); AST(SGOT) 22 U/L (15-37); Alanine Aminotransfer ALT/SGPT 25 U/L (13-56); Albumin, Serum 3.4 g/dL (3.2-5.0); Alkaline Phosphatase 179 U/L (45-117); Anion Gap 3 (5-15); BUN 20 mg/dL (7-18); BUN/Creat Ratio 25.6 RATIO (10-20); Bilirubin, Direct 0.13 mg/dL (0.00-0.30); Chloride 106 mmol/L (98-107); Creatinine, Serum 0.78 mg/dL (0.55-1.02); EST Glomerular Filtration Rate 80 mL/min (>60); Est Glom Filt Rate - Afr Amer 97 mL/min (>60); Globulin 4.1 g/dL (2.2-4.2); Glucose 102 mg/dL (74-106); Potassium 4.1 mmol/L (3.5-5.1); Protein, Total 7.5 g/dL (6.4-8.2); Sodium Level 137 mmol/L (136-145)
== END ==
PROVIDERS: Family Provider Family Medicine; PCP Family Medicine; Referring Provider Internal Medicine Gastroenterology; Visit Provider Internal Medicine Gastroenterology
DX: K74.3 Primary biliary cirrhosis (principal)
CPT/HCPCS: 36415; 80053; 82248; 85025

== ENCOUNTER → 2019-07-20 13:21 | Outpatient (CLI) | payer OTHER, SELFPAY ==
[2019-01-12 09:40] VITALS: BMI 22.9
[2019-07-27 10:36] LABS: HPV Reflexed? NOT INDICATED
== END ==
PROVIDERS: Family Provider Family Medicine; PCP Family Medicine; Referring Provider Family Medicine; Visit Provider Family Medicine
DX: Z12.4 Encounter for screening for malignant neoplasm of cervix (principal)
CPT/HCPCS: 88175; G0145

== ENCOUNTER → 2019-08-18 10:48 | Outpatient (CLI) | payer OTHER, SELFPAY ==
[2019-01-12 09:40] VITALS: BMI 22.9
--- NOTE | 2019-08-18 10:50 | BI_ITS ---
MAMMOGRAPHY - BILATERAL SCREENING REASON FOR EXAM: Female, 59 years old. Routine annual screening examination. PERTINENT HISTORY: Aunt with breast cancer. Remote right stereotactic breast biopsy. TECHNIQUE: Digital bilateral breast bernice (3D mammographic acquisition) in the CC and MLO projections. 2-D mediolateral oblique (MLO) and craniocaudad (CC) views of both breasts were obtained. CAD: Full Field Digital Mammography with Computer Added Detection was performed. COMPARISON: Comparison is made with prior study dated August 17, 2018 and August 07, 2017. FINDINGS: Breast Composition: The breasts are heterogeneously dense, which may obscure small masses. There are no dominant masses or suspicious calcifications. A tissue clip marker is once again seen in the deep slightly lateral No other significant abnormalities are identified. There has been no significant change since the prior study. BI/SCREEN MAMM (CAD) W/BERNICE BILAT IMPRESSION: Stable bilateral screening mammogram. Yearly follow-up mammogram recommended. (A) ASSESSMENT CATEGORY: BIRADS Category 2: Benign. A letter regarding these results will be sent to the patient by the facility within 30 days. Approximately 10% of breast cancers are not detected by mammography. A normal mammogram should not delay biopsy of a clinically suspicious abnormality. [id number] Electronically Signed: Raz Berg, at 13:04 EDT , Service support ,
== END ==
PROVIDERS: Family Provider Family Medicine; PCP Family Medicine; Referring Provider Family Medicine; Visit Provider Family Medicine
DX: Z12.31 Encounter for screening mammogram for malignant neoplasm of breast (principal)
CPT/HCPCS: 77063; 77067

== ENCOUNTER → 2019-11-07 15:01 | Outpatient (CLI) | payer OTHER, SELFPAY ==
[2019-01-12 09:40] VITALS: BMI 22.9
[2019-11-07 17:33] LABS: Absolute Lymphocyte Count 3.13 X10^3/uL (0.83-4.51); Absolute Neutrophil Count 6.2 X10^3/uL (2.0-7.7); Basophil# 0.06 X10^3/uL; Basophil% 0.6 % (0-1); Eosinophil# 0.13 X10^3/uL; Eosinophils% 1.3 % (0-5); Hematocrit 48.4 % (37-47); Hemoglobin 15.6 g/dL (12.0-15.0); Lymphocyte # 3.13 X10^3/ul (4.0); Lymphocyte % 30.3 % (19-41); Mean Corp Hgb Conc 32.2 g/dL (32-36); Mean Corpuscular Volume 93.1 fL (81-99); Mean Platelet Vol. 11.4 fl (6.2-12.0); Monocyte# 0.81 X10^3/uL; Monocyte% 7.8 % (0-10); NRBC Flagged by Analyzer 0 % (0-5); Neutrophil # 6.19 X10^3/uL (2.7-7.7); Neutrophil % 59.8 % (47-70); Platelet Count 246 K/mm3 (150-450); RBC Distribution Width SD 41.1 fl (35.1-43.9); White Blood Count 10.3 K/mm3 (4.4-11.0)
[2019-11-07 18:14] LABS: ALB/GLOB Ratio 0.9 RATIO (0.9-2.4); AST(SGOT) 22 U/L (15-37); Alanine Aminotransfer ALT/SGPT 26 U/L (13-56); Albumin, Serum 3.7 g/dL (3.2-5.0); Alkaline Phosphatase 177 U/L (45-117); Anion Gap 3 (5-15); BUN 21 mg/dL (7-18); BUN/Creat Ratio 27.8 RATIO (10-20); Bilirubin, Direct 0.12 mg/dL (0.00-0.30); Calcium,Total 9.4 mg/dL (8.5-10.1); Chloride 104 mmol/L (98-107); Creatinine, Serum 0.76 mg/dL (0.55-1.02); EST Glomerular Filtration Rate 83 mL/min (>60); Est Glom Filt Rate - Afr Amer 101 mL/min (>60); Globulin 4.2 g/dL (2.2-4.2); Glucose 106 mg/dL (74-106); Potassium 4.5 mmol/L (3.5-5.1); Protein, Total 7.9 g/dL (6.4-8.2); Sodium Level 137 mmol/L (136-145)
== END ==
PROVIDERS: Family Provider Family Medicine; PCP Family Medicine; Referring Provider Internal Medicine Gastroenterology; Visit Provider Internal Medicine Gastroenterology
DX: K74.3 Primary biliary cirrhosis (principal)
CPT/HCPCS: 36415; 80053; 82248; 85025

== ENCOUNTER 2020-04-09 09:00 | Outpatient (RCR) | payer OTHER, SELFPAY ==
[2019-01-12 09:40] VITALS: BMI 22.9
--- NOTE | 2020-03-30 08:41 | HP.OTEVAL ---
Patient's Visit Information JAKE NOLASCO is a 60 year old F, referred to Occupational Therapy by Dr. Jacki Oscar MD, with a diagnosis of tendonitis right thumb. Date of Evaluation: 03/29/20 Occupational Therapist: Kalyn Guerra, OTR/John, CHT - Subjective this 60 year old female was seen for OT eval with dx of thumb tendoinitis- pt states she had issues with her thumb 5-6 months ago after crocheting - pt states she has tried a thumb brace-ice- lotion for pain. pt is right handed. pt states she had increase difficulty with writing,opening containers. Pt would like to decrease pain. - ADLs Dressing: Pants, Socks, Shoes Fasteners: Tie shoes, Zippers Kitchen: Peel fruits & vegetables, Open jars, Open bottle caps - Pain right hand 4 Pain Intensity Range: 6, 8 - ROM Wrist: right 70/60 left 75/70 CMC: right 10 left 10 MP: right 50 left 60 IP: right 55 left 80 Radial Abduction: right 40 left 45 Palmar Abduction: right WNL left WNL - Strength Assistant Chief [employer]: right 45# left 65# Lateral Pinch: right 6# left 10# Tripod Pinch: right 8# with pain left 12# - Sensation Sensation Comments: denies - Quick DASH-Disab of Arm,Shoulder& Hand Quick DASH Score: 40.9075 - Goals Goal:: Pt will demo a increase in right intervention manager strength by 15# to return to PLOF by d/c. pt will demo a increase in right tripod pinch to 6# to increase ind with ADLs and IADLS by D/C. Goal:: pt will demo ROM equal to unaffected thumb by d/c to return pt to using thumb pinch with ADLs, fasteners and writing. Goal:: pt will report no pain greater than 1/10 with use of right hand for ADLs and IADLS. Goal:: pt will demo understanding and initiate joint protection emmy. by end of 3rd session. - Rehabilitation General Assessment: PT demo with painful motion of right thumb- limiting pts ROM and use of right hand with ADLs and IADLs. pt would benefit from skilled OT services 2x week for 6 weeks to return pt to PLOF. Rehabilitation Potential: Good - Anticipated Interventions A/AAROM/PROM, Strengthening, Triggerpoint Release, Modalities, Orthoses, Joint Protection/Energy Conservation, Ergonomic Education - Visit Plan Frequency: 2x /Week Duration: 6 Weeks TEXT: Thank you for the opportunity to evaluate your patient. For Medicare and Medicare HMO plans, please review the plan of care and approve it. It will need to be FAXED BACK to us at [phone] for Medicare purposes. Please let me know if there are questions or concerns regarding this plan of care. Physician Signature: Date:
--- NOTE | 2020-05-08 11:49 | HP.OTDCSUM_ITS ---
It has been my pleasure to treat JAKE NOLASCO under orders from Dr. Jacki Oscar MD, for the diagnosis of tendonitis right thumb for a total of 4 visit(s). Please see the following information for a summary of their discharge status. 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 pt will demo a increase in right tripod pinch to 6# to increase ind with ADLs and IADLS by D/C. Goal:: pt will demo ROM equal to unaffected thumb by d/c to return pt to using thumb pinch with ADLs, fasteners and writing. Goal:: pt will report no pain greater than 1/10 with use of right hand for ADLs and IADLS. Goal:: pt will demo understanding and initiate joint protection emmy. by end of 3rd session. Plan: cont with US If there are questions or concerns regarding this patient's occupational therapy, please fell free to call me at [phone]. Thank you for the referral of this patient. Sincerely, Kalyn Guerra, OTR/L, CHT
== END 2020-04-09 19:00 | disposition home or self-care (01) ==
LOC: OT 09:00
PROVIDERS: PCP Family Medicine; Referring Provider Family Medicine; Visit Provider Family Medicine
DX: M77.9 Enthesopathy, unspecified (principal)
CPT/HCPCS: 97035; 97140; 97166; 97530

== ENCOUNTER → 2020-05-01 12:48 | Outpatient (CLI) | payer OTHER, SELFPAY ==
[2020-05-01 12:43] VITALS: BMI 23.5
--- NOTE | 2020-05-01 12:49 | RAD_ITS ---
STUDY: X-RAY - RIGHT HAND REASON FOR EXAM: Thumb pain. TECHNIQUE: 3 view(s) of the hand. COMPARISON: None. FINDINGS: Normal radiocarpal articulation. Normal distal radioulnar joint. Normal visualized carpal bones. Normal carpal articulations Normal carpometacarpal articulation of the thumb. Normal second through fifth carpometacarpal joints. Normal metacarpi. Normal metacarpophalangeal joint of the thumb. Normal interphalangeal joint of the thumb. Normal proximal and distal phalanges of the thumb. Normal metacarpophalangeal joints of the second through fifth fingers. Normal proximal and distal interphalangeal joints of the second through fifth fingers. Normal phalanges of the second through fifth fingers. There is a small ossicle adjacent to the ulnar styloid process. RAD/Hand Min 3 Views IMPRESSION: Small ossicle adjacent to the ulnar styloid process. Otherwise, unremarkable x-ray examination of the right hand. Electronically Signed: Burton Lieberman MD at 14:32 EDT Tel , Service support ,
== END ==
PROVIDERS: PCP Family Medicine; Referring Provider Orthopaedic Surgery; Visit Provider Orthopaedic Surgery
DX: M65.311 Trigger thumb, right thumb (principal)
CPT/HCPCS: 73130

== ENCOUNTER → 2020-07-04 10:09 | Outpatient (CLI) | payer OTHER, SELFPAY ==
[2020-05-01 12:43] VITALS: BMI 23.5
--- NOTE | 2020-07-04 10:16 | US_ITS ---
PROCEDURES: ULTRASOUND AORTA REASON FOR EXAM: Female, 60 years old. ABD BRUIT TECHNIQUE: Ultrasound evaluation of the aorta was performed with real-time and static carrillo-scale imaging. COMPARISON: None. FINDINGS: There is atherosclerotic plaque formation of the abdominal aorta. Aorta measures: Proximal 2.0 cm. Middle 1.2 cm. Distal 1.6 cm. Aorta measure transversely: Proximal 2.1 cm. Middle 1.5 cm. Distal 1.7 cm. Right iliac artery measures: 0.9 cm. Right iliac artery measure transversely: 0.8 cm. Left iliac artery measures: 0.7 cm. Left iliac artery measure transversely: 0.7 cm. There is no demonstrated aneurysm.. US/Aorta IMPRESSION: Plaque formation of the abdominal aorta. There is no evidence of an aneurysm. Electronically Signed: Raz Berg, at 13:28 EDT , Service support ,
== END ==
PROVIDERS: PCP Family Medicine; Referring Provider Family Medicine; Visit Provider Family Medicine
DX: R09.89 Other specified symptoms and signs involving the circulatory and respiratory systems (principal)
CPT/HCPCS: 76775

== ENCOUNTER → 2020-08-23 07:28 | Outpatient (CLI) | payer OTHER, SELFPAY ==
[2020-05-01 12:43] VITALS: BMI 23.5
--- NOTE | 2020-08-23 07:31 | BI_ITS ---
MAMMOGRAPHY - BILATERAL SCREENING REASON FOR EXAM: Female, 60 years old. Routine annual screening examination. PERTINENT HISTORY: Aunts with breast cancer. Prior right stereotactic breast biopsy. TECHNIQUE: Digital bilateral breast bernice (3D mammographic acquisition) in the CC and MLO projections. 2-D mediolateral oblique (MLO) and craniocaudad (CC) views of both breasts were obtained. CAD: Full Field Digital Mammography with Computer Added Detection was performed. COMPARISON: Comparison is made with prior study dated 08/18/2019 and 08/17/2018. FINDINGS: Breast Composition: The breasts are heterogeneously dense, which may obscure small masses. There are no dominant masses or suspicious calcifications. A tissue clip marker is seen in the central slightly lateral aspect of the right breast. No other significant abnormalities are identified. There has been no significant change since the prior study. BI/SCREEN MAMM (CAD) W/BERNICE BILAT IMPRESSION: Stable bilateral screening mammogram. Yearly follow-up mammogram recommended. (A) ASSESSMENT CATEGORY: BIRADS Category 2: Benign. A letter regarding these results will be sent to the patient by the facility within 30 days. Approximately 10% of breast cancers are not detected by mammography. A normal mammogram should not delay biopsy of a clinically suspicious abnormality. [id number] Electronically Signed: Raz Berg, at 8:24 EDT , Service support ,
[2020-08-23 10:22] LABS: Cholesterol 199 mg/dL (200); High Density Lipoprotein 83 mg/dL; Triglycerides 87 mg/dL; Very Low Density Lipoprotein 17 mg/dL (5-40)
== END ==
PROVIDERS: PCP Family Medicine; Referring Provider Family Medicine; Visit Provider Family Medicine
DX: Z12.31 Encounter for screening mammogram for malignant neoplasm of breast (principal); Z13.220 Encounter for screening for lipoid disorders
CPT/HCPCS: 36415; 77063; 77067; 80061

== ENCOUNTER → 2020-08-27 09:41 | Outpatient (CLI) | payer OTHER, SELFPAY ==
[2020-05-01 12:43] VITALS: BMI 23.5
[2020-08-27 12:21] LABS: Erythrocyte Sedimentation Rate 18 mm/hr (0-30)
[2020-08-27 12:23] LABS: Absolute Lymphocyte Count 2.07 X10^3/uL (0.83-4.51); Absolute Neutrophil Count 4.8 X10^3/uL (2.0-7.7); Basophil# 0.04 X10^3/uL; Basophil% 0.5 % (0-1); Eosinophils% 1.3 % (0-5); Hemoglobin 15.3 g/dL (12.0-15.0); Lymphocyte # 2.07 X10^3/ul (4.0); Lymphocyte % 26.7 % (19-41); Mean Corp Hgb Conc 31.9 g/dL (32-36); Mean Corpuscular Hgb 29.9 pg (27.0-32.0); Mean Corpuscular Volume 93.8 fL (81-99); Mean Platelet Vol. 11.7 fl (6.2-12.0); Monocyte# 0.72 X10^3/uL; Monocyte% 9.3 % (0-10); NRBC Flagged by Analyzer 0 % (0-5); Neutrophil % 61.9 % (47-70); Platelet Count 247 K/mm3 (150-450); RBC Distribution Width CV 11.9 % (11.6-14.6); RBC Distribution Width SD 41.4 fl (35.1-43.9); Red Blood Count 5.12 M/mm3 (4.2-5.4); White Blood Count 7.8 K/mm3 (4.4-11.0)
[2020-08-27 12:44] LABS: AST(SGOT) 23 U/L (15-37); Alanine Aminotransfer ALT/SGPT 25 U/L (13-56); Albumin, Serum 3.3 g/dL (3.2-5.0); Alkaline Phosphatase 298 U/L (45-117); Bilirubin, Direct 0.26 mg/dL (0.00-0.30); Globulin 4.7 g/dL (2.2-4.2)
== END ==
PROVIDERS: PCP Family Medicine; Visit Provider Family Medicine
DX: R11.0 Nausea (principal)
CPT/HCPCS: 36415; 80076; 84443; 85025; 85652

== ENCOUNTER → 2020-09-03 08:49 | Outpatient (CLI) | payer OTHER, SELFPAY ==
[2020-05-01 12:43] VITALS: BMI 23.5
--- NOTE | 2020-09-03 08:53 | US_ITS ---
STUDY: ABDOMINAL ULTRASOUND - RIGHT UPPER QUADRANT REASON FOR VISIT: Female, 60 years old cirrhosis. TECHNIQUE: Ultrasound evaluation of the right upper quadrant was performed with real-time and static carrillo-scale imaging. TECHNICAL QUALITY: Adequate. COMPARISON: 12/21/2018. FINDINGS: Liver: The liver measures 18.4 cm. There is normal echogenicity of the liver. The bile ducts are within normal limits. There is hepatic color flow. The direction of portal flow is hepatopetal. There is no demonstrated mass lesion. Gallbladder: Normal distended gallbladder with septation. The gallbladder wall measures 3 mm. There is a negative sonographic Wallace''s sign. There is no pericholecystic fluid. There are no gallstones. Common Bile Duct (C.B.D.): The common bile duct measures 3 mm. Pancreas: Normal size of the head, body and tail of the pancreas. There is normal echogenicity of the pancreas. There is no demonstrated pancreatic mass or cyst. The pancreatic duct is not dilated. Right Kidney: Normal size of the right kidney. The right kidney measures 11.7 x 5.3 x 3.9 cm. Normal renal cortex. The right cortex measures 1.3 cm. There is no demonstrated renal mass or cyst. There is no right hydronephrosis. US/Abdomen Limited IMPRESSION: Normal right upper quadrant ultrasound examination. Electronically Signed: Tom Gonzales MD at 11:37 EDT , Service support ,
== END ==
PROVIDERS: PCP Family Medicine; Referring Provider Family Medicine; Visit Provider Family Medicine
DX: K74.3 Primary biliary cirrhosis (principal)
CPT/HCPCS: 76705

== ENCOUNTER 2020-11-09 07:24 | Day surgery (SDC) | payer OTHER, SELFPAY ==
[2020-05-01 12:43] VITALS: BMI 23.5
--- NOTE | 2020-11-09 07:00 | HP_ITS ---
I have re-examined the patient. There are no clinical changes since date of exam. Intake Intake Visit Reasons: RT Trigger Finger (Thumb) Chief Complaint: right thumb Allergies No Known Allergies Allergy (Verified 01/12/19 09:50) PFSH Social History (Updated 10/31/20 @ 15:[address] Jackelin Encarnacion DO) Smoking Status: Current every day smoker HPI RT Trigger Finger (Thumb): Chief Complaint: Right Trigger Finger Surgical H&P: Yes Details: Parts of this documentation were recorded by a scribe, this documentation accurately reflects the service provided and the decisions made by me, Dr. Jackelin Ecnarnacion DO 10/30/20 1411. JAKE NOLASCO is a 60 year old F here today for right thumb pain. Patient had a right trigger finger injection on 05/01/20. States that the injection provided relief until about a month ago. Patient would like to discuss other treatment options including surgery. Patient states that the pain is sharp and the right thumb will lock up with bending. Patient is not taking any medication for the pain. Denies numbness, tingling or other associated symptoms. Ortho Exam Right Wrist/Hand A1 hina trigger: Yes Motor: EPL: 5, FDP-2: 5, 1st Dorsal Interosseous: 5, APB: 5 Sensation: Radial: I, Ulnar: I, Median: I WRIST: right humb locking/triggering Assessment & Plan Problems 1. Trigger finger of right thumb M65.311 Plan Advised we will schedule before the end of the year. Advised depending on the schedule our office will give the patient a call either way. Surgery will be for: Thumb A1 hina release. Reviewed the pre-operative plans with the patient. Risks and benefits of the procedure were fully explained, including but not limited to infection, neurovascular injury, continued pain, arthritis, stiffness, need for further surgery, re-injury, DVT, PE, general risks of anesthesia, and loss of limb or life. The patient understands all the risks and does wish to proceed with written consent. germán yates Advised d/t smoking history, patient may have delayed healing. All questions answered. Patient in agreement of plan. Coding Level of Care Code Off vis,est,level 4 Diagnoses Trigger finger of right thumb M65.311
[2020-11-09 07:46] VITALS: BP 116/72; PULSE 70; RESP 18; TEMP 36.1; O2SAT 96; BMI 24.7
[2020-11-09] MEDS: Lactated Ringers 1,000 ML 100 ML IV (08:00)
[2020-11-09] MEDS: Cefazolin 2 GM in 0.9% Normal Saline 100 ML IV (08:53)
[2020-11-09] MEDS: Mupirocin Ointment 22gm Tube 1 APPLIC (09:14)
--- NOTE | 2020-11-09 09:19 | DCINST_ITS ---
Discharge Diet: No Restrictions - keep dressing clean and dry, if gets soiled please change dressing, follow up in 10-14 days, call with concerns Discharge Activity: May Not Drive May shower in (days): 1 Ice area for (Minutes): 20 - Every hour while awake. Weight Bearing Status: Weight bearing as tolerated Keep extremity elevated above heart level: Operative Extremity Call your doctor if your incision/area has: Continuous Slow Oozing, Sudden Increased Bleeding, Increased Pain/ Swelling, Increased Redness, Foul Smelling Discharge Call your doctor if you observe: Fever of 101 or Higher, Coldness, Increased Pain, Numbness or Tingling, Change in Color, Calf discomfort Allergies/Adverse Reactions: Allergies No Known Allergies Allergy (Verified 11/06/20 08:17) Medications to take at Discharge Cholecalciferol (VIT D3) [Vitamin D] 1,000 unit PO DAILY 01/12/19 ursodiol 300 mg capsule 300 mg PO BID 05/01/20 Pantoprazole Sodium [Protonix] 40 mg PO DAILY 11/06/20 traMADol [Ultram] 50 mg PO Q6H PRN PRN 2 Days #10 tablet 11/09/20 The following prescriptions were given: traMADol [Ultram] 50 mg PO Q6H PRN PRN 2 Days #10 tablet PRN Reason: Pain/Inflammation Transmission Status: Sent to [facility] Primary Care Physician: Jacki Oscar MD [Primary Care Provider] - Test Results: Test results from this visit will be discussed in further detail at your follow- up appointment, if applicable. Please Follow Up With: Jackelin Encarnacion, DO - [phone]
--- NOTE | 2020-11-09 09:20 | PCM.OPRPT ---
Report of Operation Date of Procedure: 11/09/20 Pre-Operative Diagnosis: right thumb trigger finger Post-Operative Diagnosis: same Surgery/Procedure Performed:: right A1 hina release thumb Type of Anesthesia:: Diann Escobar Anesthesiologist: Elvis Rhoades Estimated Blood Loss (mL): none Fluids Replaced: 500cc Description of Procedure: Preoperative note Patient is a 60-year-old female who has been seen for a locked and quite painful right trigger thumb. Patient has failed conservative treatment. Risks benefits and alternatives surgery discussed with patient. Risks including but not limited to blood loss, blood clot, infection, neurovascular injury, failure procedure, loss of life and loss of limb. Patient is aware would like proceed with right trigger finger thumb release A1 hina release. We discussed the current risk associated COVID-19. While it is understood that there is a community spread of COVID 19 the risk of sweta COVID-19 while at [facility] is very low, however, the risk cannot be completely mitigated because of the community spread of the disease. We discussed in detail the risk of exposure to and or potential harm posed by the COVID-19 virus with having a surgery/procedure at this time versus the risk of delaying the surgery/procedure. Is not possible to know either the risk of delaying the surgery procedure or chance of getting an infection with perfect accuracy, but a joint decision was made to proceed at this time with a schedule surgery/procedure as indicated on the consent form. Patient was notified that we will need to comply with any screening or testing [facility] wishes to perform or that surgery may be delayed for any positive results. Operative note Patient seen and examined preoperative holding area. Right thumb was marked. Patient is brought to the operating room and placed supine on the operating table. Sign, anesthesia, antibiotics were administered. The right arm was prepped and draped in usual sterile fashion after Diann block was initiated. All neurovascular structures were protected at all times timeout was performed. We marked out our incision at the A1 hina of the right thumb. We was about a centimeter centimeter and a half for length. We used a 15 blade to cut the skin tenotomies to dissect down to the level of the A1 hina. All neurovascular structures were protected at all times. We then released the A1 hina both proximally and distally we then brought the tendons out of the incision and flex and extend at the DIP of the right thumb to ensure that we had no further locking which we did not have. We then irrigated the incision with copious amounts of sterile saline. Incision was closed with interrupted 4-0 nylon stitches. Tourniquet was deflated for total working time of 9 minutes. Patient tolerated procedure well there are no complications, patient transferred to recovery room in stable condition. Postoperative note Use hand as tolerated but keep incision clean and dry Discussed with family Follow-up in 2 weeks for dressing change and suture removal Hospital pharmacy has prescriptions This note was generated with [employer] dictation software. It may contain incorrect words, spelling, and punctuation that were not noted in checking the note before signing.
[2020-11-09 09:23] VITALS: BP 109/72; BP 116/72; PULSE 66; RESP 16; TEMP 36.4; O2SAT 95
[2020-11-09 09:28] VITALS: BP 103/69; BP 116/72; PULSE 65; RESP 16; O2SAT 96
[2020-11-09 09:33] VITALS: BP 114/71; BP 116/72; PULSE 76; RESP 16; O2SAT 96
[2020-11-09 09:38] VITALS: BP 116/72; BP 124/73; PULSE 64; RESP 16; TEMP 36.4; O2SAT 96
[2020-11-09 09:56] VITALS: BP 116/72
== END 2020-11-09 10:02 | disposition home or self-care (01) ==
LOC: SDC 07:26 → AC 07:26
PROVIDERS: PCP Family Medicine; Referring Provider Orthopaedic Surgery; Visit Provider Orthopaedic Surgery
PROC: (CPT 26055; principal; 2020-11-09 08:45)
DX: M65.311 Trigger thumb, right thumb (principal); K74.3 Primary biliary cirrhosis; F17.200 Nicotine dependence, unspecified, uncomplicated; Z20.828 Contact with and (suspected) exposure to other viral communicable diseases
CPT/HCPCS: 01810; 26055; 87426; C9803; J7120

== ENCOUNTER → 2021-08-06 | Outpatient (CLI) | payer OTHER, SELFPAY ==
[2021-08-08 20:08] LABS: Covid Inpatient test code BILL Performed (.)
== END | disposition home or self-care (01) ==
PROVIDERS: PCP Family Medicine; Visit Provider Family Medicine
DX: U07.1 COVID-19 (principal)
CPT/HCPCS: 87635; U0005; U0003

== ENCOUNTER → 2021-09-20 14:52 | Outpatient (CLI) | payer OTHER, SELFPAY ==
--- NOTE | 2021-09-20 15:12 | BI_ITS ---
MAMMOGRAPHY - BILATERAL SCREENING REASON FOR EXAM: Female, 61 years old. Routine annual screening examination. PERTINENT HISTORY: Aunts with breast cancer. History of prior right stereotactic breast biopsy. TECHNIQUE: Digital bilateral breast bernice (3D mammographic acquisition) in the CC and MLO projections. 2-D mediolateral oblique (MLO) and craniocaudad (CC) views of both breasts were obtained. CAD: Full Field Digital Mammography with Computer Added Detection was performed. COMPARISON: Comparison is made with prior study dated 08/23/2020 and 08/18/2019. FINDINGS: Breast Composition: The breasts are heterogeneously dense, which may obscure small masses. There are no dominant masses or suspicious calcifications. A tissue clip marker is once again seen in the central deep lateral aspect of the right breast. No other significant abnormalities are identified. There has been no significant change since the prior study. BI/SCRN MAMM (CAD)W/BERNICE BILAT IMPRESSION: Stable bilateral screening mammogram. Yearly follow-up mammogram recommended. (A) ASSESSMENT CATEGORY: BIRADS Category 2: Benign. A letter regarding these results will be sent to the patient by the facility within 30 days. Approximately 10% of breast cancers are not detected by mammography. A normal mammogram should not delay biopsy of a clinically suspicious abnormality. [id number] Electronically Signed: Raz Berg MD at 8:49 EDT , Service support ,
== END ==
PROVIDERS: PCP Family Medicine; Referring Provider Family Medicine; Visit Provider Family Medicine
DX: Z12.31 Encounter for screening mammogram for malignant neoplasm of breast (principal)
CPT/HCPCS: 77063; 77067

== ENCOUNTER → 2023-01-13 | Outpatient (CLI) | payer BC, SELFPAY ==
[2023-01-21 20:28] LABS: HPV APTIMA, High Risk Negative (Negative)
[2023-01-21 20:29] LABS: HPV Reflexed? YES, CHARGE PATIENT
== END | disposition home or self-care (01) ==
PROVIDERS: PCP Family Medicine; Visit Provider Family Medicine
DX: Z12.4 Encounter for screening for malignant neoplasm of cervix (principal)
CPT/HCPCS: 87624; 88175; G0145

== ENCOUNTER → 2023-01-26 | Outpatient (CLI) | payer BC, SELFPAY ==
--- NOTE | 2023-01-26 08:00 | BI_ITS ---
MAMMOGRAPHY - BILATERAL SCREENING REASON FOR EXAM: Female, 63 years old. Routine annual screening examination. PERTINENT HISTORY: Aunts with breast cancer. History of remote right stereotactic breast biopsy. TECHNIQUE: Digital bilateral breast bernice (3D mammographic acquisition) in the CC and MLO projections. 2-D mediolateral oblique (MLO) and craniocaudad (CC) views of both breasts were obtained. CAD: Full Field Digital Mammography with Computer Added Detection was performed. COMPARISON: Comparison is made with prior examination 09/20/2021 and 08/23/2020. FINDINGS: Breast Composition: The breasts are heterogeneously dense, which may obscure small masses. There are no dominant masses or suspicious calcifications. A tissue clip marker is once again seen in the deep slightly upper lateral aspect of the right breast. No other significant abnormalities are identified. There has been no significant change since the prior study. BI/SCRN MAMM (CAD)W/BERNICE BILAT IMPRESSION: Stable bilateral screening mammogram. Yearly follow-up mammogram recommended. (A) ASSESSMENT CATEGORY: BIRADS Category 2: Benign. A letter regarding these results will be sent to the patient by the facility within 30 days. Approximately 10% of breast cancers are not detected by mammography. A normal mammogram should not delay biopsy of a clinically suspicious abnormality. [id number] Electronically Signed: Raz Berg MD at 9:32 EST ,
== END | disposition home or self-care (01) ==
LOC: OPBI 07:57
PROVIDERS: PCP Family Medicine; Visit Provider Family Medicine
DX: Z12.31 Encounter for screening mammogram for malignant neoplasm of breast (principal)
CPT/HCPCS: 77063; 77067

== ENCOUNTER → 2023-03-10 | Outpatient (CLI) | payer BC, SELFPAY ==
[2023-03-10 17:48] LABS: Hematocrit 46.7 % (37-47); Hemoglobin 14.7 g/dL (12.0-15.0); Mean Corp Hgb Conc 31.5 g/dL (32-36); Mean Corpuscular Hgb 29.9 pg (27.0-32.0); Mean Corpuscular Volume 94.9 fL (81-99); Mean Platelet Vol. 12.8 fl (6.2-12.0); Platelet Count 173 K/mm3 (150-450); RBC Distribution Width CV 12.4 % (11.6-14.6); RBC Distribution Width SD 43.7 fl (35.1-43.9); Red Blood Count 4.92 M/mm3 (4.2-5.4); White Blood Count 9.2 K/mm3 (4.4-11.0)
[2023-03-10 17:53] LABS: Partial Thromboplast Time 30.3 Seconds (24.1-36.2); Prothrombin Time (Protime)PT. 12.6 SECONDS (11.7-14.9)
[2023-03-10 18:45] LABS: Vitamin D,25 Hydroxy 34.6 ng/mL
[2023-03-10 18:49] LABS: ALB/GLOB Ratio 0.7 RATIO (0.9-2.4); AST(SGOT) 44 U/L (15-37); Alanine Aminotransfer ALT/SGPT 45 U/L (13-56); Albumin, Serum 3.7 g/dL (3.2-5.0); Alkaline Phosphatase 365 U/L (45-117); Anion Gap 5 (5-15); BUN 18 mg/dL (7-18); BUN/Creat Ratio 25.9 RATIO (10-20); Calcium,Total 9.3 mg/dL (8.5-10.1); Chloride 101 mmol/L (98-107); EST Glomerular Filtration Rate 91 mL/min (>60); Est Glom Filt Rate - Afr Amer 110 mL/min (>60); Globulin 5.1 g/dL (2.2-4.2); Glucose 100 mg/dL (74-106); Potassium 4.1 mmol/L (3.5-5.1); Protein, Total 8.8 g/dL (6.4-8.2); Sodium Level 133 mmol/L (136-145)
[2023-03-12 12:57] LABS: AFP, Tumor Marker 16.5 ng/mL (0.0-9.2)
== END | disposition home or self-care (01) ==
LOC: MTLAB 15:18
PROVIDERS: PCP Family Medicine; Referring Provider Internal Medicine Gastroenterology; Visit Provider Internal Medicine Gastroenterology
DX: M85.80 Other specified disorders of bone density and structure, unspecified site (principal)
CPT/HCPCS: 36415; 80053; 82105; 82306; 85027; 85610; 85730

== ENCOUNTER → 2023-03-21 | Outpatient (CLI) | payer BC, SELFPAY ==
--- NOTE | 2023-03-21 08:42 | US_ITS ---
STUDY: ABDOMINAL ULTRASOUND - ELASTOGRAPHY REASON FOR VISIT: Female, 63 years old. Primary biliary cirrhosis. TECHNIQUE: Liver stiffness measurements were obtained on a Dynamic Yield RS 85 ultrasound machine using a CA 1-7 probe following the SRU guidelines. 3 measurements were obtained using a 2-D-SWE method. TheIQR/M was 15% suggesting a quality data set. TECHNICAL QUALITY: Adequate. COMPARISON: Comparison is made with prior study dated September 03, 2020. FINDINGS: Liver: Hepatomegaly. Median liver stiffness measured 14.2 kPa. Abdomen: There is no demonstrated mass lesion. US/ABD Limited w/ Elastography IMPRESSION: Liver stiffness measures 14.2 kPa compatible with F3-F4 (Moderate to severe liver fibrosis) Metavir score. Electronically Signed: Raz Berg MD at 10:44 EDT ,
== END | disposition home or self-care (01) ==
LOC: US 08:40
PROVIDERS: PCP Family Medicine; Referring Provider Internal Medicine Gastroenterology; Visit Provider Internal Medicine Gastroenterology
DX: K74.3 Primary biliary cirrhosis (principal)
CPT/HCPCS: 76705; 76981

== ENCOUNTER → 2023-07-28 | Outpatient (CLI) | payer BC, SELFPAY ==
--- NOTE | 2023-07-28 07:52 | CT_ITS ---
STUDY: CT MAXILLOFACIAL SINUSES REASON FOR EXAM: Female, 63 years old. SINUSITIS RADIATION DOSAGE (If Supplied By Facility): CTDIvol = ( 33.06 ) mGy, DLP = ( 792.53 ) mGycm TECHNIQUE: The patient was scanned in a multi detector CT scanner. High resolution axial imaging was performed without the administration of intravenous contrast material. Sagittal and coronal images were reconstructed. Individualized dose optimization techniques were used for this CT. COMPARISON: None. FINDINGS: FRONTAL SINUSES: Normal aeration, without mucosal inflammatory disease. ETHMOIDAL SINUSES: Normal aeration, with minimal mucosal inflammatory disease. MAXILLARY SINUSES: Normal aeration, without mucosal inflammatory disease. SPHENOIDAL SINUSES: Normal aeration, with minimal mucosal inflammatory disease. There is patency of the bilateral maxillary infundibuli with normal uncinate processes, ethmoid bullae, and hiatus semilunaris. Normal bilateral middle turbinates. Normal bilateral inferior turbinates. Normal midline nasal septum. There is patency of the bilateral nasal airways. The visualized osseous structures are normal. The visualized bilateral orbital contents are normal. CT/Sinus/Facial Bone IMPRESSION: Minimal mucosal thickening in the ethmoid and sphenoid sinuses. No fracture or suspicious osseous lesion No suspicious soft tissue swelling Electronically Signed: Jesus Pereira MD at 9:00 EDT ,
== END | disposition home or self-care (01) ==
PROVIDERS: PCP Family Medicine; Referring Provider Otolaryngology; Visit Provider Otolaryngology
DX: J32.8 Other chronic sinusitis (principal)
CPT/HCPCS: 70486

== ENCOUNTER → 2024-03-30 | Outpatient (CLI) | payer OTHER, SELFPAY ==
[2024-03-30 15:18] LABS: Hematocrit 43.1 % (37-47); Hemoglobin 13.5 g/dL (12.0-15.0); Mean Corp Hgb Conc 31.3 g/dL (32-36); Mean Corpuscular Hgb 29.5 pg (27.0-32.0); Mean Corpuscular Volume 94.3 fL (81-99); Mean Platelet Vol. 12.5 fl (6.2-12.0); Platelet Count 189 K/mm3 (150-450); RBC Distribution Width CV 12.9 % (11.6-14.6); RBC Distribution Width SD 44.4 fl (35.1-43.9); Red Blood Count 4.57 M/mm3 (4.2-5.4); White Blood Count 7.4 K/mm3 (4.4-11.0)
[2024-03-30 15:30] LABS: Vitamin D,25 Hydroxy 27.6 ng/mL
[2024-03-30 15:37] LABS: ALB/GLOB Ratio 0.6 RATIO (0.9-2.4); AST(SGOT) 49 U/L (15-37); Alanine Aminotransfer ALT/SGPT 44 U/L (13-56); Albumin, Serum 3.3 g/dL (3.2-5.0); Alkaline Phosphatase 378 U/L (45-117); Anion Gap 6 (5-15); BUN 17 mg/dL (7-18); BUN/Creat Ratio 22.3 RATIO (10-20); Calcium,Total 9.5 mg/dL (8.5-10.1); Chloride 102 mmol/L (98-107); Creatinine, Serum 0.76 mg/dL (0.55-1.02); EST Glomerular Filtration Rate 81 mL/min (>60); Est Glom Filt Rate - Afr Amer 98 mL/min (>60); GGTP 419 U/L (5-55); Globulin 5.3 g/dL (2.2-4.2); Glucose 93 mg/dL (74-106); Potassium 3.7 mmol/L (3.5-5.1); Protein, Total 8.6 g/dL (6.4-8.2); Sodium Level 135 mmol/L (136-145)
== END | disposition home or self-care (01) ==
LOC: MTLAB 11:42
PROVIDERS: PCP Family Medicine; Referring Provider Internal Medicine Gastroenterology; Visit Provider Internal Medicine Gastroenterology
DX: K74.3 Primary biliary cirrhosis (principal)
CPT/HCPCS: 36415; 80053; 82306; 82977; 85027

== ENCOUNTER → 2024-03-31 | Outpatient (CLI) | payer OTHER, SELFPAY ==
--- NOTE | 2024-03-31 08:20 | BI_ITS ---
MAMMOGRAPHY - BILATERAL SCREENING REASON FOR EXAM: Female, 64 years old. Routine annual screening examination. PERTINENT HISTORY: Aunts with breast cancer.. Prior right stereotactic breast biopsy. TECHNIQUE: Digital bilateral breast bernice (3D mammographic acquisition) in the CC and MLO projections. 2-D mediolateral oblique (MLO) and craniocaudad (CC) views of both breasts were obtained. CAD: Full Field Digital Mammography with Computer Added Detection was performed. COMPARISON: Comparison is made with prior study January 26, 2023 and September 20, 2021. FINDINGS: Breast Composition: The breasts are heterogeneously dense, which may obscure small masses. There are no dominant masses or suspicious calcifications. A tissue clip marker is seen in the slightly upper lateral aspect of the right breast. No other significant abnormalities are identified. There has been no significant change since the prior study. BI/SCRN MAMM (CAD)W/BERNICE BILAT IMPRESSION: Stable bilateral screening mammogram. Yearly follow-up mammogram recommended. (A) ASSESSMENT CATEGORY: BIRADS Category 2: Benign. A letter regarding these results will be sent to the patient by the facility within 30 days. Approximately 10% of breast cancers are not detected by mammography. A normal mammogram should not delay biopsy of a clinically suspicious abnormality. [id number] Electronically Signed: Raz Berg MD at 10:10 EDT ,
== END | disposition home or self-care (01) ==
LOC: OPBI 08:20
PROVIDERS: PCP Family Medicine; Referring Provider Family Medicine; Visit Provider Family Medicine
DX: Z12.31 Encounter for screening mammogram for malignant neoplasm of breast (principal)
CPT/HCPCS: 77063; 77067

== ENCOUNTER → 2024-06-28 | Outpatient (CLI) | payer OTHER, SELFPAY ==
--- NOTE | 2024-06-28 13:57 | BD_ITS ---
STUDY: DUAL ENERGY X-RAY ABSORPTIOMETRY / DXA REASON FOR EXAM: Female, 64 years old. K74.3 TECHNIQUE: Bone Mineral Density (BMD) measurements of lumbar spine and bilateral hips were obtained. COMPARISON: Comparison is made with prior study of February 15, 2019. FINDINGS: Lumbar Spine (L1-L4): g/cm2 (0.773) / T-score (-2.5) / Z-score (-0.8) Findings are suggestive of osteoporosis with a high fracture risk. Left Femur Total: g/cm2 (0.624) / T-score (-2.6) / Z-score (-1.5) Left Femoral Neck: g/cm2 (0.557) / T-score (-2.6) / Z-score (-1.2) Right Femur Total: g/cm2 (0.569) / T-score (-3.1) / Z-score (-1.9) Right Femoral Neck: g/cm2 (0.490) / T-score (-3.2) / Z-score (-1.8) The T-Scores on the most recent prior examination were: Lumbar Spine (L1-L4): There has been worsening of bone density since the previous examination. Left Femur Total: which represents a worsening of 11.2%. Right Femur Total: which represents a worsening of 13.8%. BD/Dexa Bone Density Study IMPRESSION: The patient is considered osteoporotic as outlined below according to World [employer] Organization (WHO) criteria with a high fracture risk. There has been worsening of bone density since the previous examination. Reference Information: The T-score is the number of standard deviations above or below the standard which is normal for young adults at their peak bone mineral density. The World Health Organization (WHO) interprets the T-scores as follows: Above -1 Normal bone density Between -1 and -2.5 Osteopenia Equal to / or below -2.5 Osteoporosis As a practical clinical guideline, osteopenia may be graded as follows: Mild -1 through -1.5 Moderate -1.6 through -2.0 Severe -2.1 through -2.4 The Z-score is the number of standard deviations above or below age-matched controls. A Z-score of less than -1.5 would be considered abnormal. References: 1. NIH Osteoporosis and Related Bone Diseases www osteo.org 2. International Society for Clinical Densitometry www iscd.org 3. National Osteoporosis Foundation www nof.org Electronically Signed: Raz Berg MD at 10:16 EDT ,
== END | disposition home or self-care (01) ==
LOC: OPBD 13:54
PROVIDERS: PCP Family Medicine; Referring Provider Internal Medicine Gastroenterology; Visit Provider Internal Medicine Gastroenterology
DX: K74.3 Primary biliary cirrhosis (principal); M81.0 Age-related osteoporosis without current pathological fracture
CPT/HCPCS: 77080